=== PATIENT | female | born 1990 | race Caucasian/White ===

== ENCOUNTER 2017-05-01 19:26 | Emergency (ER) | payer OTHER ==
[2017-05-01] MEDS ORDERED: ONDANSETRON 4 MG/2 ML VIAL IVP STA (20:49)
[2017-05-01] MEDS ORDERED: SODIUM CHLORIDE 0.9% 1,000 ML IV STA (20:49)
[2017-05-01 21:40] LABS: Basophils % (A) 0 %; Eosinophils # (A) 0.1 k/uL (0-0.7); Eosinophils % (A) 1 %; HCT 42.7 % (34.0-46.0); HGB 14.2 gm/dL (11.4-16.0); Lymphocytes # (A) 1.2 k/uL (1.0-4.8); Lymphocytes % (A) 12 %; MCH 28.1 pg (25.0-35.0); MCHC 33.2 g/dL (31.0-37.0); MCV 84.6 fL (80.0-100.0); Mean Platelet Volume 7.9; Monocytes # (A) 0.5 k/uL (0-1.0); Monocytes % (A) 5 %; Neutrophils # (A) 8.5 k/uL (1.3-7.7); Neutrophils % (A) 82 %; Platelet Count 228 k/uL (150-450); RBC 5.05 m/uL (3.80-5.40); RDW 12.9 % (11.5-15.5); WBC 10.4 k/uL (3.8-10.6)
[2017-05-01] MEDS ORDERED: KETOROLAC 30 MG/ML 1 ML VIAL IVP STA (21:44)
[2017-05-01] MEDS ORDERED: MORPHINE SULFATE 4 MG/ML SYRINGE IVP ONE (21:44)
--- NOTE | 2017-05-01 21:45 | ED ---
Nausea/Vomiting/Diarrhea HPI - General Chief complaint: Nausea/Vomiting/Diarrhea Stated complaint: Vomiting Time Seen by Provider: 05/01/17 20:34 Source: patient, RN notes reviewed, old records reviewed Mode of arrival: ambulatory Limitations: no limitations - History of Present Illness Initial comments: Patient presents emergency Department chief complaint of chest pain for the past 3 hours. She's also been having multiple some episodes of vomiting and mucousy diarrhea for the past day.patient poor she feels very dizzy and dehydrated. Patient states that she has not been able to tolerate any fluids today. No history of sick contacts that she is aware of. She denies any specific abdominal pain. She does complain of some acid reflux type pain. - Related Data Home Medications Medication Instructions Recorded Confirmed HYDROcodone/APAP 10-325MG [[place] 1 tab PO TID PRN 05/01/17 05/01/17 10-325] Previous Rx's Medication Instructions Recorded Diphenox-Atrop 2.5-0.025 mg 1 tab PO QID PRN #15 tablet 05/01/17 [Lomotil] Metoclopramide [Reglan] 5 mg PO ACHS #20 tab 05/01/17 Allergies Allergy/AdvReac Type Severity Reaction Status Date / Time amoxicillin [Amoxicillin] Allergy Rash/Hives Verified 05/01/17 20:40 Review of Systems ROS Statement: Those systems with pertinent positive or pertinent negative responses have been documented in the HPI. ROS Other: All systems not noted in ROS Statement are negative. Past Medical History Past Medical History: Asthma History of Any Multi-Drug Resistant Organisms: None Reported Additional Past Surgical History / Comment(s): emerg D&C with last preg 1 month PP, rt groin Past Anesthesia/Blood Transfusion Reactions: No Reported Reaction Past Psychological History: Anxiety Smoking Status: Current every day smoker Past Alcohol Use History: None Reported Past Drug Use History: Marijuana General Exam - General Exam Comments Initial Comments: 19-year-old female. No acute distress. She has. Mildly anxious. Limitations: no limitations General appearance: alert, in no apparent distress Head exam: Present: atraumatic, normocephalic, normal inspection Eye exam: Present: normal appearance, PERRL, EOMI. Absent: scleral icterus, conjunctival injection, periorbital swelling ENT exam: Present: normal exam, mucous membranes moist Neck exam: Present: normal inspection. Absent: tenderness, meningismus, lymphadenopathy Respiratory exam: Present: normal lung sounds bilaterally. Absent: respiratory distress, wheezes, rales, rhonchi, stridor Cardiovascular Exam: Present: regular rate, normal rhythm, normal heart sounds. Absent: systolic murmur, diastolic murmur, rubs, gallop, clicks GI/Abdominal exam: Present: soft, normal bowel sounds. Absent: distended, tenderness, guarding, rebound, rigid Extremities exam: Present: normal inspection, full ROM, normal capillary refill. Absent: tenderness, pedal edema, joint swelling, calf tenderness Back exam: Present: normal inspection Course Vital Signs 05/01/17 05/02/17 20:27 00:01 Temperature 97.3 F L 97.8 F Pulse Rate 92 78 Respiratory 24 14 Rate Blood Pressure 111/64 121/58 O2 Sat by Pulse 97 95 Oximetry - Reevaluation(s) Reevaluation #1: 05/01/17 23:09 is dilated resting comfortably in bed. Medical Decision Making - Medical Decision Making patient is a 19-year-old female with 1 day of vomiting and diarrhea. Patient also complains a few hours of chest pain prior to arrival. EKG that she has some changes however they're on remarkable compared to EKG performed 10 years ago. The EKG appears exactly the same. Troponins negative. White blood cell count was normal. Chemistry panels are within normal limits. Urinalysis shows dehydration with positive ketones. Patient will be discharged with nausea medicine and diarrheal medicine. Discussed appropriate follow-up with primary care provider. All questions were answered and return parameters were discussed. She does feel much better at this time after IV fluids. - Lab Data Result diagrams: 05/01/17 21:18 05/01/17 21:18 Lab Results 05/01/17 05/01/17 05/01/17 Range/Units 21:18 21:18 21:18 WBC 10.4 (3.8-10.6) k/uL RBC 5.05 (3.80-5.40) m/uL Hgb 14.2 (11.4-16.0) gm/dL Hct 42.7 (34.0-46.0) % MCV 84.6 (80.0-100.0) fL MCH 28.1 (25.0-35.0) pg MCHC 33.2 (31.0-37.0) g/dL RDW 12.9 (11.5-15.5) % Plt Count 228 (150-450) k/uL Neutrophils % 82 % Lymphocytes % 12 % Monocytes % 5 % Eosinophils % 1 % Basophils % 0 % Neutrophils # 8.5 H (1.3-7.7) k/uL Lymphocytes # 1.2 (1.0-4.8) k/uL Monocytes # 0.5 (0-1.0) k/uL Eosinophils # 0.1 (0-0.7) k/uL Basophils # 0.0 (0-0.2) k/uL Sodium 138 (137-145) mmol/L Potassium 3.5 (3.5-5.1) mmol/L Chloride 101 (98-107) mmol/L Carbon Dioxide 19 L (22-30) mmol/L Anion Gap 18 mmol/L BUN 13 (7-17) mg/dL Creatinine 0.60 (0.52-1.04) mg/dL Est GFR (CKD-EPI)AfAm >90 (>60 ml/min/1.73 sqM) Est GFR (CKD-EPI)NonAf >90 (>60 ml/min/1.73 sqM) Glucose 97 (74-99) mg/dL Plasma Lactic Acid Paulino 0.9 (0.7-2.0) mmol/L Calcium 9.9 (8.4-10.2) mg/dL Total Bilirubin 1.0 (0.2-1.3) mg/dL AST 19 (14-36) U/L ALT 27 (9-52) U/L Alkaline Phosphatase 67 (38-126) U/L Troponin I (0.000-0.034) ng/mL Total Protein 7.2 (6.3-8.2) g/dL Albumin 4.4 (3.5-5.0) g/dL Amylase 33 (30-110) U/L Lipase 16 L (23-300) U/L Urine Color Urine Appearance (Clear) Urine pH (5.0-8.0) Ur Specific [place] (1.001-1.035) Urine Protein (Negative) Urine Glucose (UA) (Negative) Urine Ketones (Negative) Urine Blood (Negative) Urine Nitrite (Negative) Urine Bilirubin (Negative) Urine Urobilinogen (<2.0) mg/dL Ur Leukocyte Esterase (Negative) Urine RBC (0-5) /hpf Urine WBC (0-5) /hpf Ur Squamous Epith Cells (0-4) /hpf Urine Bacteria (None) /hpf Urine Mucus (None) /hpf 05/01/17 05/01/17 Range/Units 21:18 21:50 WBC (3.8-10.6) k/uL RBC (3.80-5.40) m/uL Hgb (11.4-16.0) gm/dL Hct (34.0-46.0) % MCV (80.0-100.0) fL MCH (25.0-35.0) pg MCHC (31.0-37.0) g/dL RDW (11.5-15.5) % Plt Count (150-450) k/uL Neutrophils % % Lymphocytes % % Monocytes % % Eosinophils % % Basophils % % Neutrophils # (1.3-7.7) k/uL Lymphocytes # (1.0-4.8) k/uL Monocytes # (0-1.0) k/uL Eosinophils # (0-0.7) k/uL Basophils # (0-0.2) k/uL Sodium (137-145) mmol/L Potassium (3.5-5.1) mmol/L Chloride (98-107) mmol/L Carbon Dioxide (22-30) mmol/L Anion Gap mmol/L BUN (7-17) mg/dL Creatinine (0.52-1.04) mg/dL Est GFR (CKD-EPI)AfAm (>60 ml/min/1.73 sqM) Est GFR (CKD-EPI)NonAf (>60 ml/min/1.73 sqM) Glucose (74-99) mg/dL Plasma Lactic Acid Paulino (0.7-2.0) mmol/L Calcium (8.4-10.2) mg/dL Total Bilirubin (0.2-1.3) mg/dL AST (14-36) U/L ALT (9-52) U/L Alkaline Phosphatase (38-126) U/L Troponin I <0.012 (0.000-0.034) ng/mL Total Protein (6.3-8.2) g/dL Albumin (3.5-5.0) g/dL Amylase (30-110) U/L Lipase (23-300) U/L Urine Color Yellow Urine Appearance Cloudy H (Clear) Urine pH 6.0 (5.0-8.0) Ur Specific [place] 1.030 (1.001-1.035) Urine Protein 1+ H (Negative) Urine Glucose (UA) Negative (Negative) Urine Ketones 4+ H (Negative) Urine Blood Negative (Negative) Urine Nitrite Negative (Negative) Urine Bilirubin 1+ H (Negative) Urine Urobilinogen 2.0 (<2.0) mg/dL Ur Leukocyte Esterase Negative (Negative) Urine RBC 4 (0-5) /hpf Urine WBC 1 (0-5) /hpf Ur Squamous Epith Cells 10 H (0-4) /hpf Urine Bacteria Rare H (None) /hpf Urine Mucus Many H (None) /hpf 05/01/17 22:37 EKG shows sinus rhythm with marked sinus arrhythmia. T wave abnormality. Considering anterior ischemia. The jugular rate of 63 bpm. NV interval 150 ms. QRS ration 82 ms. QT QTc is 410/419 ms. - Radiology Data Radiology results: report reviewed KUB shows normal bowel gas pattern. Chest x-ray was reviewed and negative for any acute process. Disposition Clinical Impression: Nausea & vomiting, Diarrhea Disposition: HOME SELF-CARE Condition: Good Instructions: Acute Nausea and Vomiting (ED) Additional Instructions: Patient advised follow-up with primary care provider. Return to the emergency department if any alarming signs or symptoms occur. Take the medications as prescribed. Prescriptions: Diphenox-Atrop 2.5-0.025 mg [Lomotil] 1 tab PO QID PRN #15 tablet PRN Reason: Diarrhea Metoclopramide [Reglan] 5 mg PO ACHS #20 tab Referrals: Amira Carroll MD [Primary Care Provider] - 1-2 days Time of Disposition: 23:13
--- NOTE | 2017-05-01 21:48 | XR ---
EXAMINATION: XR chest 2V DATE AND TIME: 05/01/2017 9:34 PM ORDERING PROVIDER: Morenita Price CLINICAL INDICATION: pain TECHNIQUE: PA and lateral COMPARISON: 12/15/2010 DESCRIPTION: The lungs are clear. The pleural spaces are negative. The cardiac silhouette is not enlarged. The mediastinal and pleural silhouettes are unremarkable. The skeletal structures are intact without focal findings. The soft tissues are unremarkable. IMPRESSION: NO ACUTE PROCESS.
--- NOTE | 2017-05-01 21:53 | XR ---
EXAMINATION TYPE: XR KUB - 2V DATE OF EXAM: 05/01/2017 COMPARISON: NONE HISTORY: Nausea and vomiting with pain TECHNIQUE: 2 upright views FINDINGS: Bowel gas pattern is normal. No pneumatosis. No pneumoperitoneum. The skeletal structures a nd soft tissues are unremarkable. The visualized lung bases and pleural spaces and cardiac silhouette are unremarkable. IMPRESSION: Negative examination.
[2017-05-01 21:54] LABS: ALT 27 U/L (9-52); AST 19 U/L (14-36); Albumin 4.4 g/dL (3.5-5.0); Alkaline Phosphatase 67 U/L (38-126); Amylase 33 U/L (30-110); Anion Gap 18 mmol/L; Blood Urea Nitrogen 13 mg/dL (7-17); Calcium 9.9 mg/dL (8.4-10.2); Carbon Dioxide 19 mmol/L (22-30); Chloride 101 mmol/L (98-107); Glucose 97 mg/dL (74-99); Lipase 16 U/L (23-300); Potassium 3.5 mmol/L (3.5-5.1); Sodium 138 mmol/L (137-145); Total Protein 7.2 g/dL (6.3-8.2)
[2017-05-01] MEDS ORDERED: MORPHINE SULFATE/PF 10MG/10ML VL ONE (22:00)
[2017-05-01] MEDS ORDERED: diphenhydrAMINE 50 MG/ML 1 ML VIAL IVP STA (22:02)
[2017-05-01] MEDS ORDERED: METOCLOPRAMIDE 5 MG/ML 2 ML VIAL IVP STA (22:02)
[2017-05-01 22:14] LABS: Appearance,Urine Cloudy (Clear); Bacteria,Urine Rare /hpf; Bilirubin,Urine 1+ (Negative); Blood,Urine Negative (Negative); Color,Urine Yellow; Glucose,Urine (UA) Negative (Negative); Ketones,Urine 4+ (Negative); Leukocyte Esterase,Urine Negative (Negative); Mucus,Urine Many /hpf; Nitrite,Urine Negative (Negative); Protein,Urine 1+ (Negative); RBC,Urine 4 /hpf (0-5); Squamous Epithelial Cell,Urine 10 /hpf (0-4); WBC,Urine 1 /hpf (0-5)
[2017-05-01] MEDS ORDERED: PANTOPRAZOLE 40 MG/10 ML VIAL IVP STA (22:42)
[2017-05-01] MEDS ORDERED: ONDANSETRON 4 MG ODT STARTER PACK 2 TAB BTL PO STA (23:14)
[2017-05-01] MEDS ORDERED: DIPHENOX-ATROP STARTER PACK 8 TAB BTL PO STA (23:14)
[2017-05-02 00:02] VITALS: BP 121/58; PULSE 78; RESP 14; TEMP 97.8
== END 2017-05-02 00:10 | disposition home or self-care (01) ==
LOC: EC 19:26
DX: E86.0 Dehydration (principal); R11.2 Nausea with vomiting, unspecified; R19.7 Diarrhea, unspecified; R42 Dizziness and giddiness; R07.9 Chest pain, unspecified; Z88.0 Allergy status to penicillin; F17.200 Nicotine dependence, unspecified, uncomplicated; Z53.8 Procedure and treatment not carried out for other reasons
CPT/HCPCS: 99284 ×2; 96374 ×2; 96375 ×4; 96361; 36415; 93005; 80053; 82150; 83605; 83690; 84484; 85025; 81001; 87040; 71046; 74018; J1200; J2765; J2405; S0119; C9113; J2270

== ENCOUNTER 2018-04-10 09:59 | Emergency (ER) | payer OTHER ==
[2018-04-10 10:04] VITALS: RESP 18
[2018-04-10] MEDS ORDERED: LORazepam 1 MG TAB PO STA (10:34)
[2018-04-10] MEDS ORDERED: ONDANSETRON 4 MG ODT STARTER PACK 2 TAB BTL PO STA (10:34)
[2018-04-10] MEDS ORDERED: ACETAMINOPHEN TAB 500 MG TAB PO STA (10:34)
[2018-04-10] MEDS ORDERED: ALBUTEROL NEBULIZED 2.5 MG/3 ML INHALATION STA (10:34)
--- NOTE | 2018-04-10 10:37 | ED ---
URI HPI - General Chief Complaint: Upper Respiratory Infection Stated Complaint: POSS FLU Time Seen by Provider: 04/10/18 10:24 Source: patient, RN notes reviewed, old records reviewed Mode of arrival: ambulatory Limitations: no limitations - History of Present Illness Initial Comments: Patient is a 28-year-old female who presents the emergency department today with little to no complaints. Patient states that her children were diagnosed with flu earlier in the week. She complains of fevers chills body aches cough. She states it is hard for take a deep breath. Patient reports that she also had some constipation. She did have a bowel movement today. Denies any abdominal pain. She denies any recent vomiting. - Related Data Home Medications Medication Instructions Recorded Confirmed HYDROcodone/APAP 10-325MG [[place] 1 tab PO TID PRN 05/01/17 05/01/17 10-325] Previous Rx's Medication Instructions Recorded Diphenox-Atrop 2.5-0.025 mg 1 tab PO QID PRN #15 tablet 05/01/17 [Lomotil] Metoclopramide [Reglan] 5 mg PO ACHS #20 tab 05/01/17 Albuterol Inhaler [Ventolin Hfa 1 - 2 puff INHALATION RT-Q6H PRN 04/10/18 Inhaler] #1 inhaler Ondansetron [Zofran] 4 mg PO Q8HR PRN #12 tab 04/10/18 Promethazine/Dextromethorphan 5 ml PO TID #120 ml 04/10/18 [Phenergan DM Syrup] predniSONE 20 mg PO BID #10 tab 04/10/18 Allergies Allergy/AdvReac Type Severity Reaction Status Date / Time amoxicillin [Amoxicillin] Allergy Rash/Hives Verified 04/10/18 10:00 Review of Systems ROS Statement: Those systems with pertinent positive or pertinent negative responses have been documented in the HPI. ROS Other: All systems not noted in ROS Statement are negative. Past Medical History Past Medical History: Asthma History of Any Multi-Drug Resistant Organisms: None Reported Additional Past Surgical History / Comment(s): emerg D&C with last preg 1 month PP, rt groin Past Anesthesia/Blood Transfusion Reactions: No Reported Reaction Past Psychological History: Anxiety Smoking Status: Current every day smoker Past Alcohol Use History: None Reported Past Drug Use History: Marijuana General Exam - General Exam Comments Initial Comments: 28-year-old female. Alert and oriented 3. Patient appears anxious. Crying. Limitations: no limitations General appearance: alert, in no apparent distress Head exam: Present: atraumatic, normocephalic, normal inspection Eye exam: Present: normal appearance, PERRL, EOMI. Absent: scleral icterus, conjunctival injection, periorbital swelling ENT exam: Present: normal exam, mucous membranes moist Neck exam: Present: normal inspection. Absent: tenderness, meningismus, lymphadenopathy Respiratory exam: Present: normal lung sounds bilaterally, wheezes. Absent: respiratory distress, rales, rhonchi, stridor Cardiovascular Exam: Present: regular rate, normal rhythm, normal heart sounds. Absent: systolic murmur, diastolic murmur, rubs, gallop, clicks GI/Abdominal exam: Present: soft, normal bowel sounds. Absent: distended, tenderness, guarding, rebound, rigid Extremities exam: Present: normal inspection, full ROM, normal capillary refill. Absent: tenderness, pedal edema, joint swelling, calf tenderness Back exam: Present: normal inspection Neurological exam: Present: alert Psychiatric exam: Present: normal affect, normal mood Skin exam: Present: warm, dry, intact, normal color. Absent: rash Course Vital Signs 04/10/18 04/10/18 04/10/18 10:00 10:49 10:58 Temperature 98.2 F Pulse Rate 75 78 84 Respiratory 18 Rate Blood Pressure 96/54 O2 Sat by Pulse 99 Oximetry Medical Decision Making - Medical Decision Making 28-year-old female presents for shortness today with chief complaint of chest cough congestion fevers. She reports her children were diagnosed with flu earlier this week. Patient clinically has the flu. Patient's chest x-ray was reviewed and negative. She appeared very anxious and having trouble breathing when she arrived. She was given 1 mg of Ativan by mouth. And a breathing treatment. Patient's feeling much better after receiving these medications. Discussed the Patient likely has a flu but has had symptoms for the past 4 days. Her symptoms started on . I discussed that Patient be treated symptomatically Motrin Tylenol medication for nausea and vomiting. I discussed strict return parameters and close follow-up with PCP. - Radiology Data Radiology results: report reviewed Normal chest x-ray. Disposition Clinical Impression: Influenza, Bronchitis Disposition: HOME SELF-CARE Condition: Good Instructions (If sedation given, give patient instructions): Upper Respiratory Infection (ED), Influenza (ED) Additional Instructions: Patient advised that close follow-up with primary care physician. Patient should return to the emergency department if any alarming signs or symptoms occur. Use the inhaler and the steroids as prescribed. Recommend using the nausea medicine as well. Clear liquids and bland diet for the next 24-48 hours. Prescriptions: Albuterol Inhaler [Ventolin Hfa Inhaler] 1 - 2 puff INHALATION RT-Q6H PRN #1 inhaler PRN Reason: Shortness Of Breath Ondansetron [Zofran] 4 mg PO Q8HR PRN #12 tab PRN Reason: Nausea predniSONE 20 mg PO BID #10 tab Promethazine/Dextromethorphan [Phenergan DM Syrup] 5 ml PO TID #120 ml Is patient prescribed a controlled substance at d/c from ED?: No Referrals: Amira Carroll MD [Primary Care Provider] - 1-2 days Time of Disposition: 11:45
--- NOTE | 2018-04-10 11:17 | XR ---
EXAMINATION TYPE: XR chest 2V DATE OF EXAM: 04/10/2018 COMPARISON: Chest x-ray May 01, 2017 HISTORY: Chest pain. Cold-like symptoms. TECHNIQUE: Frontal and lateral views of the chest are obtained. FINDINGS: There is no focal air space opacity, pleural effusion, or pneumothorax seen. The cardiac silhouette size is within normal limits. The osseous structures are intact. IMPRESSION: No acute cardiopulmonary process. No significant change from prior.
[2018-04-10 12:03] VITALS: BP 112/69; PULSE 90; TEMP 97.7
== END 2018-04-10 12:00 | disposition home or self-care (01) ==
LOC: EC 09:59
DX: J11.1 Influenza due to unidentified influenza virus with other respiratory manifestations (principal); R45.83 Excessive crying of child, adolescent or adult; J45.909 Unspecified asthma, uncomplicated; F17.200 Nicotine dependence, unspecified, uncomplicated; Z88.0 Allergy status to penicillin
CPT/HCPCS: 94640; 71046; 99284; S0119

== ENCOUNTER 2020-03-26 08:52 | Emergency (ER) | payer OTHER ==
--- NOTE | 2020-03-26 09:19 | ED ---
General Adult HPI - General Chief complaint: Abdominal Pain Stated complaint: Abd Pain Time Seen by Provider: 03/26/20 09:08 Source: patient Mode of arrival: ambulatory Limitations: no limitations - History of Present Illness Initial comments: Dictation was produced using [employer] dictation software. please excuse any grammatical, word or spelling errors. This patient was cared for during a federal and state declared state of emergency secondary to Covid 19 Chief Complaint: 30-year-old female past medical history of asthma chronic back pain presents today with abdominal pain, rhinorrhea, cough History of Present Illness: Is a 30-year-old female she has no significant comorbidities. Patient states for the last 8 days she's been having cough, runny nose, fever, diarrhea, suprapubic abdominal pain and chest pain. Patient states symptoms have been ongoing for the last 8 days. She did seek medical attention at the urgent care. She was given prescription for Ten Sleep was however feels like her symptoms have not been improving. She does experience adequate pain relief with the analgesia. She states she was off work for the last 7-8 days. Denies any vaginal discharge. She is sexually active with one partner. No suspicion of sexual transmitted disease. She recently had her menstrual cycle. States that she has been having some bilious emesis that taste better. Diarrhea is nonbilious not bloody. No recent travel. The ROS documented in this emergency department record has been reviewed and confirmed by me. Those systems with pertinent positive or negative responses have been documented in the HPI. All other systems are other negative and/or noncontributory. PHYSICAL EXAM: General Impression: Alert and oriented x3, not in acute distress HEENT: Normocephalic atraumatic, extra-ocular movements intact, pupils equal and reactive to light bilaterally, mucous membranes moist. Cardiovascular: Heart regular rate and rhythm Chest: Able to complete full sentences, no retractions, no tachypnea Abdomen: abdomen soft, mild tenderness to the suprapubic area, left lower quadrant tenderness, no McBurney's point tenderness, negative Szymanski's sign, no left upper quadrant tenderness to palpation, non-distended, no organomegaly Musculoskeletal: Pulses present and equal in all extremities, no peripheral edema Motor: no focal deficits noted Neurological: CN II-XII grossly intact, no focal motor or sensory deficits noted Skin: Intact with no visualized rashes Psych: Normal affect and mood ED course: 30-year-old female presents to the emergency department for multiple complaints. She does have some features of viral illness. She states that she was tested for elevated at the urgent care recently. She had a PCR test and was found to be negative. Vital signs upon arrival are within acceptable limits.Limited evaluation obtained. CBC unremarkable. Metabolic panel is negative. HCG Quant is 170,000, urinalysis is unremarkable. ultrasound shows single live intrauterine with estimated gestational age of 4 weeks and 3 days. Ultrasound by him and treat his larger frankly discordant at 8 weeks 0 days by crown rump length. Pelvic exam was performed with close cervical os. There is maybe some minimal tenderness with adnexal palpation. No cervical motion tenderness, no discharge. EKG interpretation: Ventricular rate 81, normal sinus rhythm, CA interval 156, QRS 82, QTc 446. No CA prolongation, no QTC prolongation, no ST or T-wave changes noted. EKG compared to 05/01/2017 showing no changes. Overall, this EKG is unremarkable 12:55 PM: Case is discussed in detail with Dr. Olvera. Dr. Olvera requests that patient be held in the emergency department so she can be evaluated before any disposition plans are made. Patient was evaluated at bedside by Dr. Olvera at approximately 1:20 PM. Patient appears to be much more improved after administration of morphine and Tylenol. After observation in the emergency department for approximately 5 hours her pain is much more controlled. She stable-appearing she has normal labs and laboratory evaluation: Signs with ultrasound findings. She reports she does have some mild pain however it's much more tolerable. She is advised to take Tylenol and started on vitamins with folic acid. She has outpatient follow-up with obstetrics. Return parameters discussed. Patient be discharged. - Related Data Home Medications Medication Instructions Recorded Confirmed HYDROcodone/APAP 10-325MG [Ten Sleep 1 tab PO QID 05/01/17 03/26/20 10-325] Acetaminophen [Tylenol] 325 - 650 mg PO Q4H PRN 03/26/20 03/26/20 Ibuprofen [Motrin Ib] 200 - 400 mg PO Q4H PRN 03/26/20 03/26/20 Allergies Allergy/AdvReac Type Severity Reaction Status Date / Time amoxicillin [Amoxicillin] Allergy Rash/Hives Verified 03/26/20 10:57 Penicillins Allergy Rash/Hives Verified 03/26/20 10:57 Review of Systems ROS Statement: Those systems with pertinent positive or pertinent negative responses have been documented in the HPI. ROS Other: All systems not noted in ROS Statement are negative. Past Medical History Past Medical History: Asthma Additional Past Medical History / Comment(s): chr. back pain History of Any Multi-Drug Resistant Organisms: None Reported Additional Past Surgical History / Comment(s): d&c, rt groin Past Anesthesia/Blood Transfusion Reactions: No Reported Reaction Past Psychological History: Anxiety Smoking Status: Current every day smoker Past Alcohol Use History: None Reported Past Drug Use History: Marijuana General Exam Limitations: no limitations Course Vital Signs 03/26/20 03/26/20 08:56 12:36 Temperature 98.4 F 97.8 F Pulse Rate 95 76 Respiratory 18 20 Rate Blood Pressure 127/74 115/70 O2 Sat by Pulse 98 99 Oximetry Medical Decision Making - Lab Data Result diagrams: 03/26/20 09:23 03/26/20 09:23 Lab Results 03/26/20 03/26/20 03/26/20 Range/Units 09:23 09:23 09:23 WBC 9.0 (3.8-10.6) k/uL RBC 4.51 (3.80-5.40) m/uL Hgb 13.2 (11.4-16.0) gm/dL Hct 39.6 (34.0-46.0) % MCV 87.8 (80.0-100.0) fL MCH 29.3 (25.0-35.0) pg MCHC 33.4 (31.0-37.0) g/dL RDW 12.1 (11.5-15.5) % Plt Count 190 (150-450) k/uL MPV 8.1 Neutrophils % 73 % Lymphocytes % 20 % Monocytes % 5 % Eosinophils % 1 % Basophils % 0 % Neutrophils # 6.6 (1.3-7.7) k/uL Lymphocytes # 1.8 (1.0-4.8) k/uL Monocytes # 0.4 (0-1.0) k/uL Eosinophils # 0.1 (0-0.7) k/uL Basophils # 0.0 (0-0.2) k/uL Sodium 135 L (137-145) mmol/L Potassium 3.9 (3.5-5.1) mmol/L Chloride 102 (98-107) mmol/L Carbon Dioxide 24 (22-30) mmol/L Anion Gap 9 mmol/L BUN 8 (7-17) mg/dL Creatinine 0.54 (0.52-1.04) mg/dL Est GFR (CKD-EPI)AfAm >90 (>60 ml/min/1.73 sqM) Est GFR (CKD-EPI)NonAf >90 (>60 ml/min/1.73 sqM) Glucose 112 H (74-99) mg/dL Calcium 9.3 (8.4-10.2) mg/dL Total Bilirubin 0.4 (0.2-1.3) mg/dL AST 20 (14-36) U/L ALT 25 (4-34) U/L Alkaline Phosphatase 50 (38-126) U/L Total Protein 6.8 (6.3-8.2) g/dL Albumin 4.1 (3.5-5.0) g/dL Lipase 23 (23-300) U/L HCG, Quant mIU/mL Urine Color Yellow Urine Appearance Cloudy H (Clear) Urine pH 6.0 (5.0-8.0) Ur Specific [place] 1.025 (1.001-1.035) Urine Protein Trace H (Negative) Urine Glucose (UA) Negative (Negative) Urine Ketones Negative (Negative) Urine Blood Negative (Negative) Urine Nitrite Negative (Negative) Urine Bilirubin Negative (Negative) Urine Urobilinogen <2.0 (<2.0) mg/dL Ur Leukocyte Esterase Negative (Negative) Urine RBC 1 (0-5) /hpf Urine WBC 1 (0-5) /hpf Ur Squamous Epith Cells 5 H (0-4) /hpf Urine Bacteria Rare H (None) /hpf Urine Mucus Many H (None) /hpf Urine HCG, Qual (Not Detectd) 03/26/20 03/26/20 Range/Units 09:23 09:23 WBC (3.8-10.6) k/uL RBC (3.80-5.40) m/uL Hgb (11.4-16.0) gm/dL Hct (34.0-46.0) % MCV (80.0-100.0) fL MCH (25.0-35.0) pg MCHC (31.0-37.0) g/dL RDW (11.5-15.5) % Plt Count (150-450) k/uL MPV Neutrophils % % Lymphocytes % % Monocytes % % Eosinophils % % Basophils % % Neutrophils # (1.3-7.7) k/uL Lymphocytes # (1.0-4.8) k/uL Monocytes # (0-1.0) k/uL Eosinophils # (0-0.7) k/uL Basophils # (0-0.2) k/uL Sodium (137-145) mmol/L Potassium (3.5-5.1) mmol/L Chloride (98-107) mmol/L Carbon Dioxide (22-30) mmol/L Anion Gap mmol/L BUN (7-17) mg/dL Creatinine (0.52-1.04) mg/dL Est GFR (CKD-EPI)AfAm (>60 ml/min/1.73 sqM) Est GFR (CKD-EPI)NonAf (>60 ml/min/1.73 sqM) Glucose (74-99) mg/dL Calcium (8.4-10.2) mg/dL Total Bilirubin (0.2-1.3) mg/dL AST (14-36) U/L ALT (4-34) U/L Alkaline Phosphatase (38-126) U/L Total Protein (6.3-8.2) g/dL Albumin (3.5-5.0) g/dL Lipase (23-300) U/L HCG, Quant 251786.0 mIU/mL Urine Color Urine Appearance (Clear) Urine pH (5.0-8.0) Ur Specific [place] (1.001-1.035) Urine Protein (Negative) Urine Glucose (UA) (Negative) Urine Ketones (Negative) Urine Blood (Negative) Urine Nitrite (Negative) Urine Bilirubin (Negative) Urine Urobilinogen (<2.0) mg/dL Ur Leukocyte Esterase (Negative) Urine RBC (0-5) /hpf Urine WBC (0-5) /hpf Ur Squamous Epith Cells (0-4) /hpf Urine Bacteria (None) /hpf Urine Mucus (None) /hpf Urine HCG, Qual Detected (Not Detectd) Disposition Clinical Impression: Pelvic pain Disposition: HOME SELF-CARE Condition: Good Instructions (If sedation given, give patient instructions): Pelvic Pain in Women (ED), (ED) Additional Instructions: [id number] Tylenol for pain. Follow-up with Dr. Olvera as instructed. Please seek medical attention with any worsening symptoms.Begin taking vitamins with folic acid. Is patient prescribed a controlled substance at d/c from ED?: No Referrals: Sariah Olvera MD [STAFF PHYSICIAN] - 1-2 days Time of Disposition: 13:37
[2020-03-26] MEDS ORDERED: ONDANSETRON 4 MG/2 ML VIAL IVP STA (09:24)
[2020-03-26] MEDS ORDERED: SODIUM CHLORIDE 0.9% 1,000 ML IV STA ×2 (09:24→12:27)
[2020-03-26 09:32] LABS: Basophils % (A) 0 %; Eosinophils # (A) 0.1 k/uL (0-0.7); Eosinophils % (A) 1 %; HCT 39.6 % (34.0-46.0); HGB 13.2 gm/dL (11.4-16.0); Lymphocytes # (A) 1.8 k/uL (1.0-4.8); Lymphocytes % (A) 20 %; MCH 29.3 pg (25.0-35.0); MCHC 33.4 g/dL (31.0-37.0); MCV 87.8 fL (80.0-100.0); Mean Platelet Volume 8.1; Monocytes # (A) 0.4 k/uL (0-1.0); Monocytes % (A) 5 %; Neutrophils # (A) 6.6 k/uL (1.3-7.7); Neutrophils % (A) 73 %; Platelet Count 190 k/uL (150-450); RBC 4.51 m/uL (3.80-5.40); RDW 12.1 % (11.5-15.5)
[2020-03-26 09:38] LABS: Appearance,Urine Cloudy (Clear); Bacteria,Urine Rare /hpf; Bilirubin,Urine Negative (Negative); Blood,Urine Negative (Negative); Color,Urine Yellow; Glucose,Urine (UA) Negative (Negative); Ketones,Urine Negative (Negative); Leukocyte Esterase,Urine Negative (Negative); Mucus,Urine Many /hpf; Nitrite,Urine Negative (Negative); Protein,Urine Trace (Negative); RBC,Urine 1 /hpf (0-5); Specific Gravity,Urine 1.025 (1.001-1.035); Squamous Epithelial Cell,Urine 5 /hpf (0-4); Urobilinogen,Urine <2.0 mg/dL (<2.0); WBC,Urine 1 /hpf (0-5)
[2020-03-26 09:41] LABS: ALT 25 U/L (4-34); AST 20 U/L (14-36); African American GFR (CKD) >90 (>60 ml/min/1.73 sqM); Albumin 4.1 g/dL (3.5-5.0); Alkaline Phosphatase 50 U/L (38-126); Anion Gap 9 mmol/L; Blood Urea Nitrogen 8 mg/dL (7-17); Calcium 9.3 mg/dL (8.4-10.2); Carbon Dioxide 24 mmol/L (22-30); Chloride 102 mmol/L (98-107); Glucose 112 mg/dL (74-99); Lipase 23 U/L (23-300); Non-African American GFR(CKD) >90 (>60 ml/min/1.73 sqM); Potassium 3.9 mmol/L (3.5-5.1); Sodium 135 mmol/L (137-145); Total Bilirubin 0.4 mg/dL (0.2-1.3); Total Protein 6.8 g/dL (6.3-8.2)
[2020-03-26] MEDS ORDERED: ACETAMINOPHEN TAB 500 MG TAB PO STA (10:26)
--- NOTE | 2020-03-26 12:16 | US ---
EXAMINATION TYPE: Ultrasound OB <= 14 week fetus DATE OF EXAM: 03/26/2020 11:48 AM COMPARISON: NONE CLINICAL HISTORY: 30-year-old female with abdominal and pelvic pain and N/V x 1 week EXAM PERFORMED: Transabdominal (TA) FINDINGS: EXAM MEASUREMENTS: GESTATIONAL AGE / DATING Physician Established: Not established yet Dates by LMP: (4 weeks/3 days) EDC: 11/30/2020 Dates by First Scan: This is 1st scan Dates by Current Scan for: ( 8 weeks/0 days) EDC: 11/05/2020 MATERNAL ANATOMY Uterus: 10.5 x 7.5 x 8.8cm, anteverted Right Ovary: 2.8 x 1.8 x 1.4cm Left Ovary: 3.3 x 1.9 x 2.6cm Post CDS / Adnexa: wnl Presence of free fluid: no Presence of corpus luteal cyst: left ovary: 2.0 x 1.4 x 1.6cm Presence of subchorionic bleed: no GESTATION / SURVEY CRL: 1.5cm (8 weeks/0 days) Yolk Sac (normal less than 6mm): 4.3mm Heart Rate: 154 bpm Rhythm: Normal IUP: Viable IUP Date of LMP: 02/24/2020 Beta HcG (if available): Not available at time of exam Scissors Sharpener notes: Viable single IUP measuring 8 weeks 0 days with a heart rate of 154bpm and an christiana mated delivery date of 11/05/2020. IMPRESSION: 1. Single live intrauterine with estimated gestational age of 4 weeks 3 days by LMP. Curren t ultrasound biometry is larger and frankly discordant at 8 weeks 0 days by CRL. Correlate as to accu racy of recall of LMP. Short interval follow-up to assess growth if clinically indicated. 2. Otherwise, complete survey recommended at 18-20 weeks.
[2020-03-26] MEDS ORDERED: MORPHINE SULFATE 4 MG/ML SYRINGE IVP STA (12:26)
[2020-03-26 14:23] VITALS: BP 114/84; PULSE 74; RESP 18; TEMP 97.6
--- NOTE | 2020-03-26 17:31 | CONS ---
CONSULTATION DATE OF CONSULTATION: 03/26/2020 This is a 30-year-old, 5, para 4-0-0-4, LMP she states 02/24/2020, who presented to the emergency room with nonspecific complaints of fatigue, sweats, nausea, no emesis, nonspecific lower abdominal pain. She states she had COVID testing recently performed which was negative. She was unaware that she was . She denies urinary symptomatology. Bowel movements have been regular, intermittently experiencing diarrhea; no constipation. Review of systems is otherwise negative. PAST MEDICAL HISTORY: Past medical history is significant for asthma. She had one seizure 6 years ago. PAST SURGICAL HISTORY: Left inguinal lymph node removal, tonsillectomy and adenoidectomy. CURRENT MEDICATIONS: [place] that she states she uses every day for back pain and degenerative disc disease in L4 and L5. She also states that she has been told by Dr. Franco that she has fibromyalgia. ALLERGIES: ALLERGIES include AMOXICILLIN and PENICILLIN, to which reports an unknown reaction as a child. SOCIAL HISTORY: The patient is a tobacco smoker for 23 years, starting smoking at age 7. She also smokes marijuana and states last smoked one month ago. She is single. She denies other alcohol or drug use. PHYSICAL EXAMINATION: On examination, she is 5 feet 1 inch, 157 pounds. Vital signs are stable and she is afebrile. Chest is clear to auscultation in all [place] anteriorly and posteriorly. Cardiac exam reveals a regular rate and rhythm with no murmur, click or rub. Breasts are bilaterally sensitive; no obvious breast lesions or skin changes. HEENT exam reveals good dentition. No thyromegaly. Abdomen is softly distended, active bowel sounds, minimally tender to suprapubic palpation. Extremities reveal no edema, good peripheral pulses. On pelvic exam, cervix is long, thick and closed. No vaginal bleeding. Uterus is 8- to 10-week size, slightly tender to palpation, but freely mobile. Adnexa are negative bilaterally. There is no CVA tenderness. LABS: White count 9.0, hemoglobin 13.2. Urinalysis is negative. Ultrasound reveals an 8-week viable intrauterine , EDC 11/05/2020. There is a small 2.0 x 1.4 x 1.6 cm left adnexal cyst. No free fluid. In discussing the films with Dr. Madden, radiologist, the uterine fundus is not near the pubic symphysis. Total uterine dimension is 10.5 x 7.5 x 8.8 cm. IMPRESSION: Eight-week intrauterine . Otherwise nonspecific physical complaints. Laboratory assessment within normal limits. PLAN: I have reminded the patient that her sonographic due date is 11/05/2020. She will discontinue all [place] products and marijuana, and discontinue tobacco as well. vitamin with folic acid daily is recommended. The patient will follow up with me in the office in 7-10 days for assessment, labs, and other studies as indicated. I have reminded her to use Extra-Strength Tylenol 1000 mg every 4-6 hours as needed, to increase her oral fluid consumption, and no intercourse at this point until further evaluation in the office. MMODL / IJN: [id number] /
== END 2020-03-26 14:23 | disposition home or self-care (01) ==
LOC: EC 08:52
DX: O26.891 Other specified pregnancy related conditions, first trimester (principal); R10.2 Pelvic and perineal pain; R05 Cough; J34.89 Other specified disorders of nose and nasal sinuses; O99.331 Smoking (tobacco) complicating pregnancy, first trimester; F17.200 Nicotine dependence, unspecified, uncomplicated; Z88.0 Allergy status to penicillin; Z3A.01 Less than 8 weeks gestation of pregnancy
CPT/HCPCS: 36415; 93005; 80053; 83690; 85025; 81001; 81025; 84702; 76801; 99285; 96374; 96375; 96361 ×3; J2270; J2405

== ENCOUNTER 2020-03-28 14:39 | Emergency (ER) | payer OTHER ==
[2020-03-28] MEDS ORDERED: ONDANSETRON 4 MG/2 ML VIAL IVP STA (15:11)
[2020-03-28] MEDS ORDERED: SODIUM CHLORIDE 0.9% 1,000 ML IV STA (15:11)
[2020-03-28] MEDS ORDERED: FAMOTIDINE 20 MG/2 ML VIAL IV STA (15:12)
--- NOTE | 2020-03-28 15:37 | ED ---
Abdominal Pain HPI - General Chief Complaint: Abdominal Pain Stated Complaint: vomiting,abd pain, 8 weeks prg Time Seen by Provider: 03/28/20 14:54 Source: patient, RN notes reviewed Mode of arrival: ambulatory Limitations: no limitations - History of Present Illness Initial Comments: Patient is a 30-year-old female presents to emergency department complaining of abdominal pain. Kamillehe was in the emergency Department 2 days ago, and was sent home after some pain medication fluids and a diabetic medication was given. She noted that since then she has mailed hold any water, or food down and has been vomiting up phlegm and saliva. She noted that she was still taking her nor goes and Tylenol urine after being advised not to after her finding out she was . She denied any irregular vaginal bleeding. She stated that the nor goes and Tylenol or even touching her pain. Upon interview patient calm down when asking questions and didn't appear to be in severe amount of pain or distress. She did note that she can't lay down on her back due to increase in nausea. She did note that since she has a hole any food down her bowel moveme nts haven't been as formed as usual, she was informed that due to the lack of nutrients this could happen. She denied any chest pain shortness of breath headache constipation diarrhea fever fatigue chills lightheadedness dizziness. Patient stated this is her fourth . - Related Data Home Medications Medication Instructions Recorded Confirmed HYDROcodone/APAP 10-325MG [[place] 1 tab PO QID 05/01/17 03/28/20 10-325] Acetaminophen [Tylenol] 650 mg PO Q4H PRN 03/26/20 03/28/20 Previous Rx's Medication Instructions Recorded Ondansetron Odt [Zofran Odt] 4 mg PO Q8HR PRN #10 tab 03/28/20 Allergies Allergy/AdvReac Type Severity Reaction Status Date / Time amoxicillin [Amoxicillin] Allergy Rash/Hives Verified 03/28/20 17:25 Penicillins Allergy Rash/Hives Verified 03/28/20 17:25 Review of Systems ROS Statement: Those systems with pertinent positive or pertinent negative responses have been documented in the HPI. ROS Other: All systems not noted in ROS Statement are negative. Past Medical History Past Medical History: Asthma Additional Past Medical History / Comment(s): chr. back pain History of Any Multi-Drug Resistant Organisms: None Reported Additional Past Surgical History / Comment(s): d&c Past Anesthesia/Blood Transfusion Reactions: No Reported Reaction Past Psychological History: Anxiety Smoking Status: Current every day smoker Past Alcohol Use History: None Reported Past Drug Use History: Marijuana General Exam Limitations: no limitations General appearance: alert, in no apparent distress Head exam: Present: atraumatic, normocephalic, normal inspection Eye exam: Present: normal appearance, PERRL, EOMI. Absent: scleral icterus, conjunctival injection, periorbital swelling ENT exam: Present: normal exam, mucous membranes moist Neck exam: Present: normal inspection. Absent: tenderness, meningismus, lymphadenopathy Respiratory exam: Present: normal lung sounds bilaterally. Absent: respiratory distress, wheezes, rales, rhonchi, stridor Cardiovascular Exam: Present: regular rate, normal rhythm, normal heart sounds. Absent: systolic murmur, diastolic murmur, rubs, gallop, clicks GI/Abdominal exam: Present: soft, normal bowel sounds. Absent: distended, tenderness, guarding, rebound, rigid External exam: Present: normal external exam Speculum exam: Present: normal speculum exam Extremities exam: Present: normal inspection, full ROM, normal capillary refill. Absent: tenderness, pedal edema, joint swelling, calf tenderness Neurological exam: Present: alert, oriented X3, CN II-XII intact Psychiatric exam: Present: normal affect, normal mood Skin exam: Present: warm, dry, intact, normal color. Absent: rash Course Vital Signs 03/28/20 03/28/20 14:41 18:15 Temperature 97.8 F Pulse Rate 92 Respiratory 18 17 Rate Blood Pressure 123/81 O2 Sat by Pulse 100 Oximetry Medical Decision Making - Medical Decision Making 20-year-old female complaining of abdominal pain, while being . 1 L of normal saline, antibiotic, Pepcid, and basic labs were ordered. Case was discussed with Dr. Ware, it was decided to forego x-rays computed tomography scan to avoid radiating the fetus. Patient was informed that no narcotics would be given in the emergency department due to detrimental effects to the fetus. Labs unremarkable. - Lab Data Result diagrams: 03/28/20 15:49 03/28/20 15:49 Lab Results 03/28/20 03/28/20 03/28/20 Range/Units 15:49 15:49 16:23 WBC 9.8 (3.8-10.6) k/uL RBC 4.43 (3.80-5.40) m/uL Hgb 13.2 (11.4-16.0) gm/dL Hct 38.6 (34.0-46.0) % MCV 87.2 (80.0-100.0) fL MCH 29.7 (25.0-35.0) pg MCHC 34.1 (31.0-37.0) g/dL RDW 12.7 (11.5-15.5) % Plt Count 223 (150-450) k/uL MPV 8.0 Neutrophils % 74 % Lymphocytes % 20 % Monocytes % 4 % Eosinophils % 1 % Basophils % 0 % Neutrophils # 7.2 (1.3-7.7) k/uL Lymphocytes # 2.0 (1.0-4.8) k/uL Monocytes # 0.4 (0-1.0) k/uL Eosinophils # 0.1 (0-0.7) k/uL Basophils # 0.0 (0-0.2) k/uL Sodium 135 L (137-145) mmol/L Potassium 4.2 (3.5-5.1) mmol/L Chloride 104 (98-107) mmol/L Carbon Dioxide 22 (22-30) mmol/L Anion Gap 9 mmol/L BUN 10 (7-17) mg/dL Creatinine 0.59 (0.52-1.04) mg/dL Est GFR (CKD-EPI)AfAm >90 (>60 ml/min/1.73 sqM) Est GFR (CKD-EPI)NonAf >90 (>60 ml/min/1.73 sqM) Glucose 101 H (74-99) mg/dL Calcium 9.4 (8.4-10.2) mg/dL Total Bilirubin 0.3 (0.2-1.3) mg/dL AST 24 (14-36) U/L ALT 28 (4-34) U/L Alkaline Phosphatase 48 (38-126) U/L Total Protein 6.9 (6.3-8.2) g/dL Albumin 4.1 (3.5-5.0) g/dL Amylase 37 (30-110) U/L Lipase 28 (23-300) U/L Trichomonas Ag (Rapid) Negative (Negative) - Radiology Data Radiology results: report reviewed, image reviewed The ultrasound gestational age is 8 weeks 4 days to MORAIMA is 11/03/2020 getting process seen. Viable IUP that correlates with prior exam. Disposition Clinical Impression: Abdominal pain, Nausea and vomiting Disposition: HOME SELF-CARE Condition: Stable Instructions (If sedation given, give patient instructions): Abdominal Pain (ED) Additional Instructions: Please return to the Emergency Department if symptoms worsen or any other concerns. Follow-up with [facility] in 3-5 days. Follow-up primary care 1-2 days. Avoid taking any narcotics, and to be harmful to the fetus. Drink plenty of fluids. Take medications as prescribed. Prescriptions: Ondansetron Odt [Zofran Odt] 4 mg PO Q8HR PRN #10 tab PRN Reason: Nausea Is patient prescribed a controlled substance at d/c from ED?: No Referrals: None,Stated [Primary Care Provider] - 1-2 days Time of Disposition: 18:48
[2020-03-28 16:30] LABS: Basophils % (A) 0 %; Eosinophils # (A) 0.1 k/uL (0-0.7); Eosinophils % (A) 1 %; HCT 38.6 % (34.0-46.0); HGB 13.2 gm/dL (11.4-16.0); Lymphocytes % (A) 20 %; MCH 29.7 pg (25.0-35.0); MCHC 34.1 g/dL (31.0-37.0); MCV 87.2 fL (80.0-100.0); Monocytes # (A) 0.4 k/uL (0-1.0); Monocytes % (A) 4 %; Neutrophils # (A) 7.2 k/uL (1.3-7.7); Neutrophils % (A) 74 %; Platelet Count 223 k/uL (150-450); RBC 4.43 m/uL (3.80-5.40); RDW 12.7 % (11.5-15.5); WBC 9.8 k/uL (3.8-10.6)
[2020-03-28 16:49] LABS: ALT 28 U/L (4-34); AST 24 U/L (14-36); African American GFR (CKD) >90 (>60 ml/min/1.73 sqM); Albumin 4.1 g/dL (3.5-5.0); Alkaline Phosphatase 48 U/L (38-126); Amylase 37 U/L (30-110); Anion Gap 9 mmol/L; Blood Urea Nitrogen 10 mg/dL (7-17); Calcium 9.4 mg/dL (8.4-10.2); Carbon Dioxide 22 mmol/L (22-30); Chloride 104 mmol/L (98-107); Glucose 101 mg/dL (74-99); Lipase 28 U/L (23-300); Non-African American GFR(CKD) >90 (>60 ml/min/1.73 sqM); Potassium 4.2 mmol/L (3.5-5.1); Sodium 135 mmol/L (137-145); Total Bilirubin 0.3 mg/dL (0.2-1.3); Total Protein 6.9 g/dL (6.3-8.2)
[2020-03-28] MEDS ORDERED: DICYCLOMINE 10 MG/ML 2 ML AMP IM STA (17:22)
[2020-03-28 18:16] VITALS: RESP 17
--- NOTE | 2020-03-28 18:28 | US ---
EXAMINATION TYPE: Transabdominal DATE OF EXAM: 03/28/2020 6:04 PM COMPARISON: US CLINICAL HISTORY: Abdominal pain. EXAM PERFORMED: Transabdominal (TA) EXAM MEASUREMENTS: GESTATIONAL AGE / DATING Physician Established: Not yet established Dates by LMP: does not correlate from prior US Dates by First Scan: ( 8 weeks/2 days) EDC: 11/05/2020 Dates by Current Scan for: (8 weeks/4 days) EDC: 11/03/2020 MATERNAL ANATOMY Uterus: 12.8 x 6.7 x 8.1 cm Right Ovary: 3.2 x 2.8 x 2.1 cm Left Ovary: 3.5 x 3.3 x 1.7 cm Post CDS / Adnexa: wnl Presence of free fluid: none GESTATION / SURVEY CRL: 1.9 cm (8 weeks/4 days) Yolk Sac (normal less than 6mm): 0.4 cm Heart Rate: 153 bpm Rhythm: Normal IUP: Viable IUP Date of LMP: Does not correlate Beta HcG (if available): not available Viable IUP that correlates with prior exam. IMPRESSION: The ultrasound gestational age is 8 weeks and 4 days. The MORAIMA is 11/03/2020. No complicating process s een.
[2020-03-28 20:03] VITALS: BP 122/74; PULSE 77; TEMP 98.7
[2020-03-29 14:47] LABS: C. trachomatis,PCR Negative (Neg,Equiv); Chlamydia trachomatis Source Vagina; N. gonorrhoeae,PCR Negative (Neg,Equiv); Neisseria Source Vagina
== END 2020-03-28 19:25 | disposition home or self-care (01) ==
LOC: EC 14:39
DX: O21.9 Vomiting of pregnancy, unspecified (principal); R10.9 Unspecified abdominal pain; O26.891 Other specified pregnancy related conditions, first trimester; O99.331 Smoking (tobacco) complicating pregnancy, first trimester; F17.200 Nicotine dependence, unspecified, uncomplicated; Z3A.01 Less than 8 weeks gestation of pregnancy; Z88.0 Allergy status to penicillin
CPT/HCPCS: 36415; 80053; 82150; 83690; 85025; 87808; 87491; 87591; 87070; 76801; 99284; 96374; 96375; 96361; 96372; J0500; J2405

== ENCOUNTER 2020-05-28 16:04 | Emergency (ER) | payer OTHER ==
[2020-05-28 16:17] VITALS: TEMP 97.8
--- NOTE | 2020-05-28 16:17 | ED ---
General Adult HPI <Alexi Graham - Last Filed: 05/28/20 17:03> - General Source: patient, RN notes reviewed, old records reviewed <Gurinder Regan - Last Filed: 05/28/20 19:26> - General Stated complaint: abd pain/blood in stool/17 wks preg - History of Present Illness Initial comments: 30-year-old female, 17 week presents emergency Department with a chief complaint of rectal bleeding that started early this morning. Patient also reports associated lower abdominal cramping but denies any urinary or vaginal symptoms. (Alexi Graham) This is a 30-year-old female who comes in 17 weeks complaining that she's having rectal bleeding. 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 Patient states the cramping of the lower abdomen continues. Patient denies any vaginal discharge or bleeding. Patient denies any dysuria hematuria urinary frequency. Patient states there is no rectal pain but there is bright red blood per rectum. Patient denies any difficulty breathing shortness of breath or chest pain. Patient denies any recent fever chills or cough. While patient was getting blo od drawn in triage she had a vasovagal episode passed out patient woke up and was still feeling a little lightheaded. (Gurinder Regan) - Related Data Home Medications Medication Instructions Recorded Confirmed HYDROcodone/APAP 10-325MG [[place] 1 tab PO QID 05/01/17 03/28/20 10-325] Acetaminophen [Tylenol] 650 mg PO Q4H PRN 03/26/20 03/28/20 Previous Rx's Medication Instructions Recorded Ondansetron Odt [Zofran Odt] 4 mg PO Q8HR PRN #10 tab 03/28/20 Allergies Allergy/AdvReac Type Severity Reaction Status Date / Time amoxicillin [Amoxicillin] Allergy Rash/Hives Verified 03/28/20 17:25 aspirin Allergy Rash/Hives Verified 05/28/20 16:18 Penicillins Allergy Rash/Hives Verified 03/28/20 17:25 Review of Systems ROS Other: All systems not noted in ROS Statement are negative. <Alexi Graham - Last Filed: 05/28/20 17:03> ROS Other: All systems not noted in ROS Statement are negative. <Gurinder Regan - Last Filed: 05/28/20 19:26> ROS Statement: Those systems with pertinent positive or pertinent negative responses have been documented in the HPI. Past Medical History Past Medical History: Asthma Additional Past Medical History / Comment(s): chr. back pain History of Any Multi-Drug Resistant Organisms: None Reported Additional Past Surgical History / Comment(s): d&c Past Anesthesia/Blood Transfusion Reactions: No Reported Reaction Past Psychological History: Anxiety Smoking Status: Current every day smoker Past Alcohol Use History: None Reported Past Drug Use History: Marijuana <Alexi Graham - Last Filed: 05/28/20 17:03> General Exam <Gurinder Regan - Last Filed: 05/28/20 19:26> - General Exam Comments Initial Comments: GENERAL: Patient is well-developed and well-nourished. Patient is nontoxic and well- hydrated and is in mild distress. ENT: Neck is soft and supple. No significant lymphadenopathy is noted. Oropharynx is clear. Moist mucous membranes. Neck has full range of motion without eliciting any pain. EYES: The sclera were anicteric and conjunctiva were pink and moist. Extraocular movements were intact and pupils were equal round and reactive to light. Eyelids were unremarkable. PULMONARY: Unlabored respirations. Good breath sounds bilaterally. No audible rales rhonchi or wheezing was noted. CARDIOVASCULAR: There is a regular rate and rhythm without any murmurs gallops or rubs. ABDOMEN: Patient has lower abdominal pain in both lower quadrants. SKIN: Skin is clear with no lesions or rashes and otherwise unremarkable. NEUROLOGIC: Patient is alert and oriented x3. Cranial nerves II through XII are grossly intact. Motor and sensory are also intact. Normal speech, volume and content. Symmetrical smile. MUSCULOSKELETAL: Normal extremities with adequate strength and full range of motion. LYMPHATICS: No significant lymphadenopathy is noted PSYCHIATRIC: Normal psychiatric evaluation. (Gurinder Regan) Course Vital Signs 05/28/20 05/28/20 05/28/20 16:14 16:17 17:32 Temperature 97.8 F 97.8 F Pulse Rate 97 84 Respiratory 18 16 Rate Blood Pressure 108/97 110/76 O2 Sat by Pulse 97 98 Oximetry 05/28/20 18:28 Temperature Pulse Rate 91 Respiratory 16 Rate Blood Pressure 112/64 O2 Sat by Pulse Oximetry Medical Decision Making - Lab Data Result diagrams: 05/28/20 17:31 05/28/20 17:06 <Gurinder Regan - Last Filed: 05/28/20 19:26> - Medical Decision Making EKG shows normal sinus rhythm at 80 bpm DC interval is on a 58 QRSs 82 QT intervals 400 QTC is 461. Patient's EKG shows some T-wave abdomen is in 3 and aVF Patient received fluid and some Zofran emergency department. After that patient was able to get up and without problem. Patient's blood pressure was stable heart rate was stable and patient stated she would follow-up with Dr. Aviles for the pain since she's been having it since the beginning of her . I did do a rectal exam on the patient and there was no obvious sites of bleeding. She did not want a vaginal exam (Gurinder Regan) - Lab Data Lab Results 05/28/20 05/28/20 05/28/20 Range/Units 16:42 17:06 17:27 WBC (3.8-10.6) k/uL RBC (3.80-5.40) m/uL Hgb (11.4-16.0) gm/dL Hct (34.0-46.0) % MCV (80.0-100.0) fL MCH (25.0-35.0) pg MCHC (31.0-37.0) g/dL RDW (11.5-15.5) % Plt Count (150-450) k/uL MPV Neutrophils % % Lymphocytes % % Monocytes % % Eosinophils % % Basophils % % Neutrophils # (1.3-7.7) k/uL Lymphocytes # (1.0-4.8) k/uL Monocytes # (0-1.0) k/uL Eosinophils # (0-0.7) k/uL Basophils # (0-0.2) k/uL PT (9.0-12.0) sec INR (<1.2) APTT (22.0-30.0) sec Sodium 133 L (137-145) mmol/L Potassium 4.0 (3.5-5.1) mmol/L Chloride 103 (98-107) mmol/L Carbon Dioxide 20 L (22-30) mmol/L Anion Gap 10 mmol/L BUN 7 (7-17) mg/dL Creatinine 0.41 L (0.52-1.04) mg/dL Est GFR (CKD-EPI)AfAm >90 (>60 ml/min/1.73 sqM) Est GFR (CKD-EPI)NonAf >90 (>60 ml/min/1.73 sqM) Glucose 77 (74-99) mg/dL POC Glucose (mg/dL) 83 (75-99) mg/dL POC Glu Mail Processing Equipment Mechanic ID Lucille Lzoa Calcium 10.2 (8.4-10.2) mg/dL Total Bilirubin 0.3 (0.2-1.3) mg/dL AST 23 (14-36) U/L ALT 33 (4-34) U/L Alkaline Phosphatase 69 (38-126) U/L Troponin I (0.000-0.034) ng/mL Total Protein 6.5 (6.3-8.2) g/dL Albumin 3.9 (3.5-5.0) g/dL Urine Color Yellow Urine Appearance Turbid H (Clear) Urine pH 7.0 (5.0-8.0) Ur Specific [place] 1.011 (1.001-1.035) Urine Protein Negative (Negative) Urine Glucose (UA) Negative (Negative) Urine Ketones Negative (Negative) Urine Blood Negative (Negative) Urine Nitrite Negative (Negative) Urine Bilirubin Negative (Negative) Urine Urobilinogen <2.0 (<2.0) mg/dL Ur Leukocyte Esterase Negative (Negative) Urine RBC 3 (0-5) /hpf Urine WBC 1 (0-5) /hpf Ur Squamous Epith Cells 3 (0-4) /hpf Amorphous Sediment Moderate H (None) /hpf Urine Bacteria Occasional H (None) /hpf Urine Mucus Rare H (None) /hpf Blood Type Blood Type Recheck Bld Type Recheck Status Antibody Screen Spec Expiration Date 05/28/20 05/28/20 05/28/20 Range/Units 17:31 17:31 17:31 WBC 10.7 H (3.8-10.6) k/uL RBC 4.21 (3.80-5.40) m/uL Hgb 12.9 (11.4-16.0) gm/dL Hct 36.7 (34.0-46.0) % MCV 87.1 (80.0-100.0) fL MCH 30.6 (25.0-35.0) pg MCHC 35.2 (31.0-37.0) g/dL RDW 12.7 (11.5-15.5) % Plt Count 235 (150-450) k/uL MPV 8.1 Neutrophils % 73 % Lymphocytes % 19 % Monocytes % 5 % Eosinophils % 2 % Basophils % 0 % Neutrophils # 7.7 (1.3-7.7) k/uL Lymphocytes # 2.1 (1.0-4.8) k/uL Monocytes # 0.6 (0-1.0) k/uL Eosinophils # 0.2 (0-0.7) k/uL Basophils # 0.0 (0-0.2) k/uL PT 12.2 H (9.0-12.0) sec INR 1.2 H (<1.2) APTT 22.4 (22.0-30.0) sec Sodium (137-145) mmol/L Potassium (3.5-5.1) mmol/L Chloride (98-107) mmol/L Carbon Dioxide (22-30) mmol/L Anion Gap mmol/L BUN (7-17) mg/dL Creatinine (0.52-1.04) mg/dL Est GFR (CKD-EPI)AfAm (>60 ml/min/1.73 sqM) Est GFR (CKD-EPI)NonAf (>60 ml/min/1.73 sqM) Glucose (74-99) mg/dL POC Glucose (mg/dL) (75-99) mg/dL POC Glu Mail Processing Equipment Mechanic ID Calcium (8.4-10.2) mg/dL Total Bilirubin (0.2-1.3) mg/dL AST (14-36) U/L ALT (4-34) U/L Alkaline Phosphatase (38-126) U/L Troponin I <0.012 (0.000-0.034) ng/mL Total Protein (6.3-8.2) g/dL Albumin (3.5-5.0) g/dL Urine Color Urine Appearance (Clear) Urine pH (5.0-8.0) Ur Specific [place] (1.001-1.035) Urine Protein (Negative) Urine Glucose (UA) (Negative) Urine Ketones (Negative) Urine Blood (Negative) Urine Nitrite (Negative) Urine Bilirubin (Negative) Urine Urobilinogen (<2.0) mg/dL Ur Leukocyte Esterase (Negative) Urine RBC (0-5) /hpf Urine WBC (0-5) /hpf Ur Squamous Epith Cells (0-4) /hpf Amorphous Sediment (None) /hpf Urine Bacteria (None) /hpf Urine Mucus (None) /hpf Blood Type Blood Type Recheck Bld Type Recheck Status Antibody Screen Spec Expiration Date 05/28/20 Range/Units 17:31 WBC (3.8-10.6) k/uL RBC (3.80-5.40) m/uL Hgb (11.4-16.0) gm/dL Hct (34.0-46.0) % MCV (80.0-100.0) fL MCH (25.0-35.0) pg MCHC (31.0-37.0) g/dL RDW (11.5-15.5) % Plt Count (150-450) k/uL MPV Neutrophils % % Lymphocytes % % Monocytes % % Eosinophils % % Basophils % % Neutrophils # (1.3-7.7) k/uL Lymphocytes # (1.0-4.8) k/uL Monocytes # (0-1.0) k/uL Eosinophils # (0-0.7) k/uL Basophils # (0-0.2) k/uL PT (9.0-12.0) sec INR (<1.2) APTT (22.0-30.0) sec Sodium (137-145) mmol/L Potassium (3.5-5.1) mmol/L Chloride (98-107) mmol/L Carbon Dioxide (22-30) mmol/L Anion Gap mmol/L BUN (7-17) mg/dL Creatinine (0.52-1.04) mg/dL Est GFR (CKD-EPI)AfAm (>60 ml/min/1.73 sqM) Est GFR (CKD-EPI)NonAf (>60 ml/min/1.73 sqM) Glucose (74-99) mg/dL POC Glucose (mg/dL) (75-99) mg/dL POC Glu Mail Processing Equipment Mechanic ID Calcium (8.4-10.2) mg/dL Total Bilirubin (0.2-1.3) mg/dL AST (14-36) U/L ALT (4-34) U/L Alkaline Phosphatase (38-126) U/L Troponin I (0.000-0.034) ng/mL Total Protein (6.3-8.2) g/dL Albumin (3.5-5.0) g/dL Urine Color Urine Appearance (Clear) Urine pH (5.0-8.0) Ur Specific [place] (1.001-1.035) Urine Protein (Negative) Urine Glucose (UA) (Negative) Urine Ketones (Negative) Urine Blood (Negative) Urine Nitrite (Negative) Urine Bilirubin (Negative) Urine Urobilinogen (<2.0) mg/dL Ur Leukocyte Esterase (Negative) Urine RBC (0-5) /hpf Urine WBC (0-5) /hpf Ur Squamous Epith Cells (0-4) /hpf Amorphous Sediment (None) /hpf Urine Bacteria (None) /hpf Urine Mucus (None) /hpf Blood Type O Positive Blood Type Recheck O Pos Bld Type Recheck Status No Antibody Screen NEGATIVE Spec Expiration Date 05/31/2020 - 2330 Disposition <Alexi Graham - Last Filed: 05/28/20 17:03> Is patient prescribed a controlled substance at d/c from ED?: No Time of Disposition: 19:24 <Gurinder Regan - Last Filed: 05/28/20 19:26> Clinical Impression: Vasovagal episode, Rectal bleeding Disposition: HOME SELF-CARE Condition: Good Instructions (If sedation given, give patient instructions): Rectal Bleeding (ED) Additional Instructions: Patient should return if there is worsening symptoms. Referrals: None,Stated [Primary Care Provider] - 1-2 days
[2020-05-28 17:28] LABS: Glucose,Whole Blood 83 mg/dL (75-99)
[2020-05-28 17:33] VITALS: RESP 16
[2020-05-28 17:34] LABS: Amorphous Sediment,Urine Moderate /hpf; Appearance,Urine Turbid (Clear); Bacteria,Urine Occasional /hpf; Bilirubin,Urine Negative (Negative); Blood,Urine Negative (Negative); Color,Urine Yellow; Glucose,Urine (UA) Negative (Negative); Ketones,Urine Negative (Negative); Leukocyte Esterase,Urine Negative (Negative); Mucus,Urine Rare /hpf; Nitrite,Urine Negative (Negative); Protein,Urine Negative (Negative); RBC,Urine 3 /hpf (0-5); Specific Gravity,Urine 1.011 (1.001-1.035); Squamous Epithelial Cell,Urine 3 /hpf (0-4); Urobilinogen,Urine <2.0 mg/dL (<2.0); WBC,Urine 1 /hpf (0-5)
[2020-05-28 17:38] LABS: Basophils % (A) 0 %; Eosinophils # (A) 0.2 k/uL (0-0.7); Eosinophils % (A) 2 %; HCT 36.7 % (34.0-46.0); HGB 12.9 gm/dL (11.4-16.0); Lymphocytes # (A) 2.1 k/uL (1.0-4.8); Lymphocytes % (A) 19 %; MCH 30.6 pg (25.0-35.0); MCHC 35.2 g/dL (31.0-37.0); MCV 87.1 fL (80.0-100.0); Mean Platelet Volume 8.1; Monocytes # (A) 0.6 k/uL (0-1.0); Monocytes % (A) 5 %; Neutrophils # (A) 7.7 k/uL (1.3-7.7); Neutrophils % (A) 73 %; Platelet Count 235 k/uL (150-450); RBC 4.21 m/uL (3.80-5.40); RDW 12.7 % (11.5-15.5); WBC 10.7 k/uL (3.8-10.6)
[2020-05-28] MEDS ORDERED: SODIUM CHLORIDE 0.9% 1,000 ML IV ONE (17:42)
[2020-05-28] MEDS ORDERED: ONDANSETRON 4 MG/2 ML VIAL IVP STA (17:42)
[2020-05-28 17:48] LABS: ALT 33 U/L (4-34); AST 23 U/L (14-36); African American GFR (CKD) >90 (>60 ml/min/1.73 sqM); Albumin 3.9 g/dL (3.5-5.0); Alkaline Phosphatase 69 U/L (38-126); Anion Gap 10 mmol/L; Blood Urea Nitrogen 7 mg/dL (7-17); Calcium 10.2 mg/dL (8.4-10.2); Carbon Dioxide 20 mmol/L (22-30); Chloride 103 mmol/L (98-107); Glucose 77 mg/dL (74-99); Non-African American GFR(CKD) >90 (>60 ml/min/1.73 sqM); Sodium 133 mmol/L (137-145); Total Bilirubin 0.3 mg/dL (0.2-1.3); Total Protein 6.5 g/dL (6.3-8.2)
[2020-05-28 18:05] LABS: INR 1.2 (<1.2); Partial Thromboplastin Time 22.4 sec (22.0-30.0); Prothrombin Time 12.2 sec (9.0-12.0)
--- NOTE | 2020-05-28 18:54 | US ---
EXAMINATION TYPE: US OB >= 14 wk fetus DATE OF EXAM: 05/28/2020 COMPARISON: 03/28/2020 CLINICAL HISTORY: lower abd cramping pelvic pain TECHNIQUE: Transabdominal (TA) GESTATIONAL AGE / DATING Physician Established: (17 weeks/0 days) EDC: 11/05/20 Dates by LMP: LMP unknown Dates by First Scan: (17 weeks/0 days) EDC: 11/05/20 Dates by Current Scan: (17 weeks/3 days) EDC: 11/02/20 SURVEY IUP: Single PLACENTA: Posterior PREVIA: Low Lying UBALDO: 10.3 cm Normal CERVICAL LENGTH (transabdominal: norm > 3.0cm): 3.6 cm BIOMETRY PRESENTATION: Vertex LIE: Longitudinal BPD: 3.8 cm 17 weeks / 4 days HC: 13.8 cm 17 weeks / 2 days AC: 11.1 cm 17 weeks / 0 days FL: 2.5 cm 17 weeks / 4 days ESTIMATED WEIGHT IN GRAMS: 185 grams ESTIMATED WEIGHT IN LBS/OZ: 0 lbs. 7 oz. WEIGHT PERCENTAGE BASED ON ESTABLISHED DATES: 56% HC/AC: 1.24 Normal FL/AC: 22% Normal HEART RATE: 152 bpm RHYTHM: Normal This examination is not a dedicated anatomy scan. IMPRESSION: 1. Single live intrauterine gestation with heart rate of 152 bpm. Estimated gestational age by curren t scan 17 weeks 3 days. 2. Low-lying placenta.
[2020-05-28 19:48] VITALS: BP 113/61; PULSE 80
== END 2020-05-28 19:45 | disposition home or self-care (01) ==
LOC: EC 16:04
DX: O46.92 Antepartum hemorrhage, unspecified, second trimester (principal); O99.512 Diseases of the respiratory system complicating pregnancy, second trimester; O99.332 Smoking (tobacco) complicating pregnancy, second trimester; R55 Syncope and collapse; Z3A.17 17 weeks gestation of pregnancy; J45.909 Unspecified asthma, uncomplicated; F17.200 Nicotine dependence, unspecified, uncomplicated; F12.90 Cannabis use, unspecified, uncomplicated
CPT/HCPCS: 36415; 93005; 86900; 86901; 80053; 84484; 85025; 85610; 85730; 86850; 81001; 76805; 99284; 96374; 96361; J2405

== ENCOUNTER 2020-08-19 12:46 | Inpatient (IN) | payer OTHER ==
[2020-08-19] MEDS ORDERED: SODIUM CHLORIDE 0.9% 1,000 ML IV ONE (12:59)
--- NOTE | 2020-08-19 13:02 | ED ---
Female Urogenital HPI - General Stated complaint: seizure Time Seen by Provider: 08/19/20 12:58 - History of Present Illness Initial comments: 30-year-old female at 29 weeks this may gestational age, , who presents here department for pelvic cramping and questionable seizure versus syncopal event. The patient states that she was recently seen her point and she was driving home from she did point. She was having some pelvic cramping since that time. She states that it's located in her suprapubic region and seems to come and go however is quite severe when the pain is at its maximum. She denies any leakage of fluid or vaginal bleeding. The patient does have a bilobed placenta however has not been told that his low-lying. Patient came to the emergency department and was noted to have some shaking episode while in the car. She was very diaphoretic and was minimally responsive. There is question as to whether she may be however after evaluation this was determined to be incorrect. - Related Data Home Medications Medication Instructions Recorded Confirmed HYDROcodone/APAP 10-325MG [[place] 1 tab PO QID 05/01/17 03/28/20 10-325] Acetaminophen [Tylenol] 650 mg PO Q4H PRN 03/26/20 03/28/20 Previous Rx's Medication Instructions Recorded Ondansetron Odt [Zofran Odt] 4 mg PO Q8HR PRN #10 tab 03/28/20 Allergies Allergy/AdvReac Type Severity Reaction Status Date / Time amoxicillin [Amoxicillin] Allergy Rash/Hives Verified 08/19/20 13:02 aspirin Allergy Rash/Hives Verified 08/19/20 13:02 Penicillins Allergy Rash/Hives Verified 08/19/20 13:02 Review of Systems ROS Statement: Those systems with pertinent positive or pertinent negative responses have been documented in the HPI. ROS Other: All systems not noted in ROS Statement are negative. Past Medical History Past Medical History: Asthma Additional Past Medical History / Comment(s): chr. back pain History of Any Multi-Drug Resistant Organisms: None Reported Additional Past Surgical History / Comment(s): d&c Past Anesthesia/Blood Transfusion Reactions: No Reported Reaction Past Psychological History: Anxiety Smoking Status: Current every day smoker Past Alcohol Use History: None Reported Past Drug Use History: Marijuana General Exam - General Exam Comments Initial Comments: Constitutional: Awake alert Appears comfortable nondiaphoretic Head: Normocephalic atraumatic Eyes: no conjunctival injection No scleral icterus EOMI Neck: No JVD Supple Heart: Regular rate rhythm normal S1-S2 no murmurs Lungs: Clear to auscultation bilaterally No wheezing No rales Abdomen: Soft nondistended gravid abdomen with tenderness and suprapubic region, soft, cervix did not seem to be dilated, no vaginal bleeding noted on examination Extremities: Non edematous DP pulses intact Radial pulses intact Neuro: A&Ox3 cranial nerves II through XII are grossly intact, 5 out of 56 upper and lower [place], the patient is awake and alert and talking and able to answer questions No focal neurologic deficits Psych: Appropriate mood and affect Course Vital Signs 08/19/20 12:57 Temperature 98.6 F Pulse Rate 104 H Respiratory 16 Rate Blood Pressure 114/70 O2 Sat by Pulse 98 Oximetry - Reevaluation(s) Reevaluation #1: 08/19/20 13:14 Bedside ultrasound was performed and there is concern that there may be a lucency base between the placenta in the uterine wall. I did speak with Dr. Forbes was updated patient's status and states that she will come in to evaluate the patient. The patient is having quite a bit of crampy type pain. Reevaluation #2: 08/19/20 13:20 Pt apparently had another episode where she became unresponsive and started dry heaving. I evaluted the pt and she appeared diaphoretic and eyes were open but appeared minimally responsive. HR [address] Diaz arrived and reviewed US images and appears to be placental abruption and taken emergently to the OR for . 08/19/20 13:22 08/19/20 13:24 Reevaluation #3: 08/19/20 13:24 EKG showing sinus tachycardia with a rate of 112. There is no abnormal ST segment changes. T-wave flattening in V3, aVF. Other intervals appear normal. No ectopy. Medical Decision Making - Medical Decision Making Is a 30-year-old female who presents emergency department for a cramping and question will seizure-like activity. My original evaluation the patient's vital signs were stable and she was awake and alert and able to give me a history of chief complaint of lower abdominal cramping which seemed to be waxing and waning in intensity. The patient's pain seemed to increase over time. I did perform a bimanual examination which did not show any blood or cervical dilation. The outside ultrasound was concerning for placental abruption. I spoke with Dr. Diaz and updated on the case. She came in emergently evaluated the patient and determined that she needed to go emergently to the OR for . The patient was transferred up to labor and delivery for stat in critical condition. - Lab Data Result diagrams: 08/19/20 13:05 Lab Results 08/19/20 Range/Units 13:05 WBC 9.8 (3.8-10.6) k/uL RBC 4.20 (3.80-5.40) m/uL Hgb 12.3 (11.4-16.0) gm/dL Hct 35.9 (34.0-46.0) % MCV 85.5 (80.0-100.0) fL MCH 29.3 (25.0-35.0) pg MCHC 34.2 (31.0-37.0) g/dL RDW 13.5 (11.5-15.5) % Plt Count 240 (150-450) k/uL MPV 8.4 Neutrophils % 68 % Lymphocytes % 23 % Monocytes % 6 % Eosinophils % 2 % Basophils % 0 % Neutrophils # 6.6 (1.3-7.7) k/uL Lymphocytes # 2.3 (1.0-4.8) k/uL Monocytes # 0.6 (0-1.0) k/uL Eosinophils # 0.2 (0-0.7) k/uL Basophils # 0.0 (0-0.2) k/uL Disposition Clinical Impression: Placental abruption Disposition: ADMITTED IP TO THIS HOSP Condition: Critical Referrals: None,Stated [Primary Care Provider] - 1-2 days
[2020-08-19 13:18] LABS: Basophils % (A) 0 %; Eosinophils # (A) 0.2 k/uL (0-0.7); Eosinophils % (A) 2 %; HCT 35.9 % (34.0-46.0); HGB 12.3 gm/dL (11.4-16.0); Lymphocytes # (A) 2.3 k/uL (1.0-4.8); Lymphocytes % (A) 23 %; MCH 29.3 pg (25.0-35.0); MCHC 34.2 g/dL (31.0-37.0); MCV 85.5 fL (80.0-100.0); Mean Platelet Volume 8.4; Monocytes # (A) 0.6 k/uL (0-1.0); Monocytes % (A) 6 %; Neutrophils # (A) 6.6 k/uL (1.3-7.7); Neutrophils % (A) 68 %; Platelet Count 240 k/uL (150-450); RDW 13.5 % (11.5-15.5); WBC 9.8 k/uL (3.8-10.6)
[2020-08-19 13:28] LABS: INR 0.9 (<1.2); Partial Thromboplastin Time 22.9 sec (22.0-30.0); Prothrombin Time 9.8 sec (9.0-12.0)
[2020-08-19] MEDS ORDERED: fentaNYL (PF) 50 MCG/ML 2 ML AMP ONE (13:30)
[2020-08-19] MEDS ORDERED: SUCCINYLCHOLINE CHLORIDE VIAL 200 MG/10 ML VIAL IV ONE (13:30)
[2020-08-19] MEDS ORDERED: PROPOFOL 10 MG/ML 20 ML VIAL IV ONE (13:30)
[2020-08-19] MEDS ORDERED: CLINDAMYCIN 150 MG/ML 4 ML VIAL ONE (13:30)
[2020-08-19] MEDS ORDERED: LIDOCAINE 1% INJ 10MG/ML (20 ML MDV) ONE (13:30)
[2020-08-19] MEDS ORDERED: SUCCINYLCHOLINE CHLORIDE 100 MG/5 ML SYR IV ONE (13:30)
[2020-08-19] MEDS ORDERED: OXYTOCIN 30 UNITS/500 ML NS BAG IV ONE (13:30)
[2020-08-19 13:49] LABS: AST 24 U/L (14-36); African American GFR (CKD) >90 (>60 ml/min/1.73 sqM); Albumin 3.9 g/dL (3.5-5.0); Alkaline Phosphatase 130 U/L (38-126); Anion Gap 14 mmol/L; Blood Urea Nitrogen 5 mg/dL (7-17); Calcium 9.7 mg/dL (8.4-10.2); Carbon Dioxide 14 mmol/L (22-30); Chloride 107 mmol/L (98-107); Glucose 102 mg/dL (74-99); Magnesium 1.7 mg/dL (1.6-2.3); Non-African American GFR(CKD) >90 (>60 ml/min/1.73 sqM); Potassium 3.9 mmol/L (3.5-5.1); Sodium 135 mmol/L (137-145); Total Bilirubin 0.4 mg/dL (0.2-1.3); Total Protein 6.6 g/dL (6.3-8.2)
[2020-08-19 13:56] LABS: ALT 22 U/L (4-34)
--- NOTE | 2020-08-19 14:23 | US ---
EXAMINATION TYPE: US OB limited DATE OF EXAM: 08/19/2020 COMPARISON: NONE CLINICAL HISTORY: 29 weeks, pelvic pain/cramping. Pain patient was found in her car having a sizure a t hospital. Doctor looking for placenta abruption Er physician and Dr. Olvera present with ultrasound. Patient started having another sizure in ER Dr. Olvera seen ultrasound images took patient right to s urgery. EXAM PERFORMED: Transabdominal (TA) GESTATIONAL AGE / DATING Physician Established: (29 weeks/0 days) EDC: 11/03/2020 No growth performed on today?s study per ordering physician SURVEY PLACENTA: Yes appears to be abruption. Ultrasound evidence of abruption? Limited scan was performed. There is hypoechogenicity deep to the placenta. IMPRESSION: Findings consistent with placental abruption
[2020-08-19] MEDS ORDERED: OXYTOCIN 30 UNITS/500 ML NS 30 UNIT in SALINE 1 500ML.BAG IV SCH (14:30)
--- NOTE | 2020-08-19 14:43 | P.HPOB ---
History of Present Illness H&P Date: 08/19/20 Chief Complaint: Severe abdominal pain This is a 30-year-old female 5 para 3013 EDC 11/05/2020 at 29 weeks gestation. Patient spent the day yesterday at [place], was driving home today with her family. In the car she began to have severe abdominal pain that came in waves. This began at approximately 1221 per family. Her stepfather brought her to [facility] emergency room. Patient at the time of admission was having emesis and tonic clonic motions, questionable seizure-like activity. Labs were drawn and IV was started. Stat bedside ultrasound suggested a placental abruption, a mass noted behind the placenta in front of the uterine wall. Patient was immediately transferred up to labor and delivery for stat . History is obtained rest fro actively. Past medical history is significant for questionable seizure disorder, exercise-induced asthma. Past surgical history right groin lymph nodes removed, voluntary termination of 7 years ago, retained products of conception in 2009 following a vaginal delivery with a D&C, balloon catheter placement, 10 day ICU admission and blood transfusions. Social history is significant for tobacco smoking for at least 10 years. She denies alcohol or drug use. Her partner of 10 years Enoch is present in the room. Current medications vitamins daily, Zofran when necessary. ALLERGIES include amoxicillin to which reports a rash. On physical exam patient is 5 foot 1 inch, 80 kg, blood pressure 114/70, pulse 104, respirations 16, temperature 98.6. Gen. physical examination reveals an obtunded appearing female. The abdomen is exquisitely tender to palpation. Pelvic exam by ER doctor reveals a long thick closed posterior cervix. No vaginal bleeding. heart rate 160 in the emergency room. Lungs are clear in all [place]. Extremities reveal no edema. Impression: 29 week intrauterine , severe abdominal pain, suspect placental abruption. Plan stat section. Emergency room transfer immediately to labor and delivery suite. Anesthesia and accounting technician present and aware. Review of Systems Constitutional: Reports as per HPI Past Medical History Past Medical History: Asthma Additional Past Medical History / Comment(s): chr. back pain History of Any Multi-Drug Resistant Organisms: None Reported Additional Past Surgical History / Comment(s): d&c Past Anesthesia/Blood Transfusion Reactions: No Reported Reaction Past Psychological History: Anxiety Smoking Status: Current every day smoker Past Alcohol Use History: None Reported Past Drug Use History: Marijuana Medications and Allergies Home Medications Medication Instructions Recorded Confirmed Type HYDROcodone/APAP 10-325MG [[place] 1 tab PO QID 05/01/17 03/28/20 History 10-325] Acetaminophen [Tylenol] 650 mg PO Q4H PRN 03/26/20 03/28/20 History Ondansetron Odt [Zofran Odt] 4 mg PO Q8HR PRN #10 tab 03/28/20 Rx Allergies Allergy/AdvReac Type Severity Reaction Status Date / Time amoxicillin [Amoxicillin] Allergy Rash/Hives Verified 08/19/20 13:02 aspirin Allergy Rash/Hives Verified 08/19/20 13:02 Penicillins Allergy Rash/Hives Verified 08/19/20 13:02 Exam Vital Signs Temp Pulse Resp BP Pulse Ox 08/19/20 12:57 98.6 F 104 H 16 114/70 98 Intake and Output 08/18/20 08/19/20 08/19/20 22:59 06:59 14:59 Other: Weight 80.739 kg See dictation under HPI please Results Result Diagrams: 08/19/20 13:05 08/19/20 13:05 Abnormal Lab Results - Last 24 Hours (Table) 08/19/20 Range/Units 13:05 Sodium 135 L (137-145) mmol/L Carbon Dioxide 14 L (22-30) mmol/L BUN 5 L (7-17) mg/dL Creatinine 0.38 L (0.52-1.04) mg/dL Glucose 102 H (74-99) mg/dL Alkaline Phosphatase 130 H (38-126) U/L Assessment and Plan Assessment: 29 week intrauterine , placental abruption Plan: Stat section. [employer] anesthesia team present and aware. Time with Patient: Less than 30
[2020-08-19] MEDS ORDERED: HYDROmorphone PCA 10 MG/50 ML BAG IV PRN (14:49)
[2020-08-19] MEDS ORDERED: NALOXONE 0.4 MG/ML 1 ML VIAL IV PRN ×2 (14:49→14:50)
--- NOTE | 2020-08-19 14:49 | P.OP ---
Date of Procedure: 08/19/20 Preoperative Diagnosis: 29 week intrauterine , placental abruption. Postoperative Diagnosis: Same, liveborn female , nuchal cord 1, normal-appearing tubes and ovaries and uterine fundus. Procedure(s) Performed: Stat low transverse section Anesthesia: MANDIE Surgeon: Sariah Olvera Glass Science Engineer #1: Tristan Mayes Estimated Blood Loss (ml): 150 IV fluids (ml): 100 Urine output (ml): 150 Pathology: other (The center) Condition: stable Disposition: PACU Operative Findings: Liveborn female vertex infant, 4 lbs. 7 oz., 2010 g, nuchal cord 1. Description of Procedure: Patient is transferred directly to the labor and delivery operating room from the emergency room. She's placed in the dorsal supine position. Sloan catheter is placed. The abdomen is prepped and draped in usual sterile fashion. Gen. anesthetic is given. Clindamycin is given. The appropriate timeout is performed. A low transverse skin incision is made in this is carried down through the subcutaneous tissue of approximately 2 cm depth. Fascia is opened bilaterally with curved Srinivasan scissors. Peritoneum is next identified and incised. The latter flap is placed over the dome of the bladder to protect from bladder and/or ureteral injury. A low transverse uterine incision is made and extended with blunt dissection. Upon entering the abdominal wall the placenta is directly anterior. Delivering through the placenta of vertex presentation is brought into the incision. There is a nuchal cord 1 that is reduced. The patient is officially delivered a liveborn female infant at 1334 hours. Fluid is noted to be clear. Umbilical cord is doubly clamped and ligated, she is handed to waiting placement interviewer for evaluation where scores of 6 and 9 at one and 5 minutes respectively are given. The placentas delivered manually, sent to pathology for evaluation. The uterus is then externalized and massaged. Oxytocin is given. The uterus is swept clean with a sterile sponge to avoid any retained products of conception. The uterus is closed in a two-step fashion, first layer running locking with 0 Vicryl, second layer imbricated with 0 Vicryl. Hemostasis is excellent. The abdomen is suctioned with suction on guard posterior to the uterus. Bilateral tubes and ovaries appear normal to inspection. Uterus is placed gently back into the peritoneal cavity. Bilateral gutters are inspected and cleaned. Peritoneum is allowed to close by secondary intention. Fascia is closed in a running stitch of 0 Vicryl with over ligation in the midline. Subcutaneous tissue is reapproximated with 3-0 Vicryl in a running stitch. 4-0 undyed Monocryl is used on the skin in a subcuticular manner for final skin closure. Steri-Strips and Mastisol are applied to the wound. Uterus is massaged for small amount of vaginal bleeding. Patient is brought back to recovery room in very good condition with stable vital signs including a pulse of 107, blood pressure 114/81, 96% O2 saturation. Urine is clear in the Lsoan tube. weighed 4 lbs. 7 oz. or 2010 g. [facility] on route to transfer the baby secondary to gestational age. Patient is resting comfortably in the recovery room.
[2020-08-19] MEDS ORDERED: METOCLOPRAMIDE 5 MG/ML 2 ML VIAL IVP PRN (14:50)
[2020-08-19] MEDS ORDERED: SIMETHICONE 80 MG CHEWABLE PO PRN (14:50)
[2020-08-19] MEDS ORDERED: ZOLPIDEM 5 MG TAB PO PRN (14:50)
[2020-08-19] MEDS ORDERED: MEASLES-MUMPS-RUBELLA VACC/PF 12,500 UNIT/0.5 ML VIAL SQ ONE (14:50)
[2020-08-19] MEDS ORDERED: diphenhydrAMINE 25 MG CAP PO PRN (14:50)
[2020-08-19] MEDS ORDERED: ONDANSETRON 4 MG/2 ML VIAL IVP PRN (14:50)
[2020-08-19] MEDS ORDERED: diphenhydrAMINE 50 MG CAP PO PRN (14:50)
[2020-08-19] MEDS ORDERED: diphenhydrAMINE 50 MG/ML 1 ML VIAL IVP PRN ×2 (14:50)
[2020-08-19] MEDS ORDERED: HYDROmorphone 1 MG/ML 1 ML SYRINGE IVP STA (15:02)
[2020-08-19 17:05] LABS: Appearance,Urine Cloudy (Clear); Bacteria,Urine Rare /hpf; Bilirubin,Urine Negative (Negative); Blood,Urine Moderate (Negative); Color,Urine Yellow; Glucose,Urine (UA) Negative (Negative); Hyaline Casts,Urine 1 /lpf (0-2); Ketones,Urine 1+ (Negative); Leukocyte Esterase,Urine Negative (Negative); Mucus,Urine Rare /hpf; Nitrite,Urine Negative (Negative); PH, Urine 6.5 (5.0-8.0); Protein,Urine 2+ (Negative); RBC,Urine 2 /hpf (0-5); Specific Gravity,Urine 1.017 (1.001-1.035); Squamous Epithelial Cell,Urine 1 /hpf (0-4); Urobilinogen,Urine <2.0 mg/dL (<2.0); WBC,Urine 3 /hpf (0-5)
[2020-08-19 18:13] LABS: Amphetamine Screen,Urine Not Detected (NotDetected); Barbiturate Screen,Urine Not Detected (NotDetected); Benzodiazepines Screen,Urine Not Detected (NotDetected); Cocaine Screen,Urine Not Detected (NotDetected); Methadone Screen, Urine Not Detected (NotDetected); Opiate Screen,Urine Not Detected (NotDetected); Oxycodone Screen, Urine Not Detected (NotDetected); Phencyclidine Screen,Urine Not Detected (NotDetected); Tricyclic Antidepressant,Urine Not Detected (NotDetected); Urn Cannabinoid Scrn Not Detected (NotDetected)
[2020-08-19] MEDS ORDERED: LACTATED RINGERS 500 ML IV ONE (20:15)
[2020-08-19] MEDS: LACTATED RINGERS 1,000 ML IV SCH (21:17)
[2020-08-19] MEDS: SENNOSIDES-DOCUSATE SODIUM 1 EACH TAB PO SCH (21:17)
[2020-08-20 06:06] LABS: Basophils % (A) 0 %; Eosinophils # (A) 0.2 k/uL (0-0.7); Eosinophils % (A) 2 %; HCT 29.8 % (34.0-46.0); HGB 10.3 gm/dL (11.4-16.0); Lymphocytes # (A) 1.2 k/uL (1.0-4.8); Lymphocytes % (A) 14 %; MCH 29.7 pg (25.0-35.0); MCHC 34.5 g/dL (31.0-37.0); MCV 86.2 fL (80.0-100.0); Mean Platelet Volume 8.1; Monocytes # (A) 0.5 k/uL (0-1.0); Monocytes % (A) 5 %; Neutrophils # (A) 6.9 k/uL (1.3-7.7); Neutrophils % (A) 78 %; Platelet Count 171 k/uL (150-450); RBC 3.46 m/uL (3.80-5.40); RDW 13.5 % (11.5-15.5); WBC 8.9 k/uL (3.8-10.6)
--- NOTE | 2020-08-20 08:19 | P.PN ---
Subjective Progress Note Date: 08/20/20 Principal diagnosis: Doing well postoperative day #1 Negative flatus. Pain well managed. Patient tired. No other complaints. Objective - Vital Signs Vital signs: Vital Signs Temp 97.3 F L 08/20/20 04:00 Pulse 77 08/20/20 04:00 Resp 16 08/20/20 04:00 BP 103/57 08/20/20 04:00 Pulse Ox 95 08/20/20 04:00 Intake & Output 08/19/20 08/20/20 08/20/20 18:59 06:59 18:59 Intake Total 1300 1000 Output Total 190 2700 Balance 1110 -1700 Weight 80.739 kg Intake: IV 1200 1000 Oral 100 Output: Urine 190 2700 Uretheral (Sloan) 800 Other: Voiding Method Indwelling Catheter Indwelling Catheter - Constitutional General appearance: Present: average body habitus - EENT Eyes: Present: PERRLA ENT: Present: hearing grossly normal - Neck Neck: Present: normal ROM - Respiratory Respiratory: bilateral: CTA - Cardiovascular Rhythm: regular - Gastrointestinal General gastrointestinal: Present: normal bowel sounds - Genitourinary Genitourinary Comment(s): Incision clean and dry, intact, Steri-Strips applied. Positive tympany. - Integumentary Integumentary: Present: normal - Neurologic Neurologic: Present: CNII-XII intact - Musculoskeletal Musculoskeletal: Present: strength equal bilaterally - Psychiatric Psychiatric: Present: A&O x's 3 - Labs CBC & Chem 7: 08/20/20 05:40 08/19/20 13:05 Labs: Abnormal Lab Results - Last 24 Hours (Table) 08/19/20 08/19/20 08/20/20 Range/Units 13:05 13:05 05:40 RBC 3.46 L (3.80-5.40) m/uL Hgb 10.3 L (11.4-16.0) gm/dL Hct 29.8 L (34.0-46.0) % Sodium 135 L (137-145) mmol/L Carbon Dioxide 14 L (22-30) mmol/L BUN 5 L (7-17) mg/dL Creatinine 0.38 L (0.52-1.04) mg/dL Glucose 102 H (74-99) mg/dL Alkaline Phosphatase 130 H (38-126) U/L Urine Appearance Cloudy H (Clear) Urine Protein 2+ H (Negative) Urine Ketones 1+ H (Negative) Urine Blood Moderate H (Negative) Urine Bacteria Rare H (None) /hpf Urine Mucus Rare H (None) /hpf Assessment and Plan Assessment: Doing well postoperative day #1 Plan: Patient is anxious for discharge home. She is encouraged today to ambulate, sh ower, increase activities. We'll switch to oral pain medication. Continue postoperative care, optimistic discharge home tomorrow. Time with Patient: Less than 30
[2020-08-20] MEDS: IBUPROFEN 600 MG TAB PO SCH ×3 (09:35→21:04)
[2020-08-20] MEDS: SENNOSIDES-DOCUSATE SODIUM 1 EACH TAB PO SCH ×2 (14:39→21:04)
[2020-08-20] MEDS: ACETAMINOPHEN TAB 500 MG TAB PO PRN (15:42)
[2020-08-20] MEDS: LACTATED RINGERS 1,000 ML IV SCH (20:13)
[2020-08-21] MEDS: ACETAMINOPHEN TAB 500 MG TAB PO PRN ×2 (00:02→08:19)
[2020-08-21 00:07] VITALS: TEMP 98
[2020-08-21] MEDS: IBUPROFEN 600 MG TAB PO SCH ×2 (03:06→11:23)
--- NOTE | 2020-08-21 08:08 | P.DS ---
Providers Date of admission: 08/19/20 13:49 Expected date of discharge: 08/21/20 Attending physician: Sariah Olvera Primary care physician: Stated None Hospital Course: This is a 30-year-old white female 5 para 3114 EDC 920 08/29/2028 weeks gestation who presented through the emergency room with an acute placental abruption. Blood type is O+, rubella status immune. Rupee strep cultures not done. Please see dictated history and physical for details. Patient was admitted and went immediately to the section room where she underwent a low-transverse primary section. She gave to a liveborn female with scores of 6 and 9 at one and 5 minutes respectively. weighed 4 lbs. 7 oz. or 2010 g. Uterus appeared normal to inspection, bilateral tubes and ovaries normal. Estimated blood loss at surgery 150 mL's. Please see dictated operative note for details. Postoperatively the patient has done well. This when she is voiding, ambulating, passing flatus without difficulty. Vital signs are stable and she is afebrile. Incision is clean and dry, well approximated, Steri-Strips applied. Extremities are negative for edema. Chest is clear. Fundus is firm and in the midline, symmetric and 16 week size. There is minimal lochia rubra. Pain is well tolerated with ibuprofen products. She is using a breast pump, and I have given her prescription for same which is been filled at the pharmacy. She will use [id number] Advil or Aleve, or Motrin as needed for pain. I've asked her to call with any fevers shakes or chills, foul smelling or copious lochia, with the passage of large blood clots, with any pain not alleviated by ibuprofen, or indeed with any concerns. She will follow-up with me in the office in 2 weeks. Assessment: Well second post operative day Patient Condition at Discharge: Good Plan - Discharge Summary Discharge Rx Participant: No New Discharge Prescriptions: No Action HYDROcodone/APAP 10-325MG [[place] 10-325] 1 tab PO QID Acetaminophen [Tylenol] 650 mg PO Q4H PRN PRN Reason: Pain Or Fever > 100.5 Ondansetron Odt [Zofran Odt] 4 mg PO Q8HR PRN #10 tab PRN Reason: Nausea Discharge Medication List HYDROcodone/APAP 10-325MG [[place] 10-325] 1 tab PO QID 05/01/17 [History] Acetaminophen [Tylenol] 650 mg PO Q4H PRN 03/26/20 [History] Ondansetron Odt [Zofran Odt] 4 mg PO Q8HR PRN #10 tab 03/28/20 [Rx] Follow up Appointment(s)/Referral(s): None,Stated [Primary Care Provider] - 2 Weeks Sariah Olvera MD [STAFF PHYSICIAN] - 2 Weeks Discharge Disposition: HOME SELF-CARE
[2020-08-21] MEDS: SENNOSIDES-DOCUSATE SODIUM 1 EACH TAB PO SCH (08:19)
[2020-08-21 08:31] VITALS: BP 110/76; PULSE 77; RESP 18
== END 2020-08-21 11:40 | disposition home or self-care (01) | DRG 786 ==
LOC: EC 12:46 → 4FBP 13:49
PROVIDERS: ADMIT Obstetrics & Gynecology; ATTEND Obstetrics & Gynecology
PROC: 10D00Z1 Extraction of Products of Conception, Low, Open Approach (ICD-10-PCS; principal; 2020-08-19 13:30)
DX: O43.193 Other malformation of placenta, third trimester (principal); O45.93 Premature separation of placenta, unspecified, third trimester; O69.81X0 Labor and delivery complicated by cord around neck, without compression, not applicable or unspecified; O99.334 Smoking (tobacco) complicating childbirth; F17.200 Nicotine dependence, unspecified, uncomplicated; F41.9 Anxiety disorder, unspecified; J45.909 Unspecified asthma, uncomplicated; R56.9 Unspecified convulsions; O99.344 Other mental disorders complicating childbirth; O99.52 Diseases of the respiratory system complicating childbirth; Z37.0 Single live birth; Z3A.29 29 weeks gestation of pregnancy
CPT/HCPCS: 36415; 76815; 80053; 80306; 81001; 83735; 85025; 85610; 85730; 86850; 86900; 86901; 88307; 93005; 96360; 99291

== ENCOUNTER → 2020-10-23 | Outpatient (CLI) | payer OTHER ==
[2020-10-23 13:15] LABS: Basophils % (A) 0 %; Eosinophils # (A) 0.2 k/uL (0-0.7); Eosinophils % (A) 3 %; HCT 41.2 % (34.0-46.0); Lymphocytes # (A) 2.9 k/uL (1.0-4.8); Lymphocytes % (A) 37 %; MCH 28.7 pg (25.0-35.0); MCHC 32.8 g/dL (31.0-37.0); MCV 87.3 fL (80.0-100.0); Mean Platelet Volume 8.6; Monocytes # (A) 0.3 k/uL (0-1.0); Monocytes % (A) 4 %; Neutrophils # (A) 4.3 k/uL (1.3-7.7); Neutrophils % (A) 55 %; Platelet Count 252 k/uL (150-450); RBC 4.72 m/uL (3.80-5.40); RDW 13.9 % (11.5-15.5); WBC 7.8 k/uL (3.8-10.6)
[2020-10-23 13:18] LABS: HGB 13.5 gm/dL (11.4-16.0)
== END | disposition home or self-care (01) ==
LOC: LABPAT 11:36
PROVIDERS: ATTEND Obstetrics & Gynecology
DX: Z01.812 Encounter for preprocedural laboratory examination (principal)
CPT/HCPCS: 36415; 85025

== ENCOUNTER 2020-11-19 08:57 | Day surgery (SDC) | payer OTHER ==
--- NOTE | 2020-11-15 08:54 | HP ---
HISTORY AND PHYSICAL REASON FOR ADMISSION: Surgery scheduled for Thursday, November 19, 2020 HISTORY OF PRESENT ILLNESS: This is a 30-year-old female, 5, para 2-1-1-3 who presents today requesting removal of her Nexplanon in her left arm, and laparoscopic bilateral tubal ligation for permanent sterilization. She understands the risks, benefits, and alternatives of all contraceptive options. She desires no further childbearing, but understands that there is a very slight chance of after bilateral tubal ligation. PAST MEDICAL HISTORY: Significant for stress-induced asthma, back pain, carpal tunnel syndrome, degenerative disk disease at L4 and L5, fibromyalgia, chlamydia, depression, osteoarthritis and seizure history. PAST SURGICAL HISTORY: Tonsillectomy and adenoidectomy as a child, section, August 2020, D and C 2010 for hemorrhage, voluntary termination 2012, benign lymph nodes removed of the right groin, and bilateral eustachian tubes in the ears many years ago. ALLERGIES: INCLUDE AMOXICILLIN AND PENICILLINS, REACTION IS NOT NOTED. FAMILY HISTORY: Significant for hypertension, breast and ovarian cancer, diabetes, lung cancer, seizure disorder, SIDS and Covid. REPRODUCTIVE HISTORY: The patient has had vaginal deliveries as well as section in 2020. 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 REVIEW OF SYSTEMS: Is otherwise negative. EXAM: Patient is 5 foot 4 inches, 130 pounds, blood pressure 112/62. HEENT exam reveals no thyromegaly, good dentition, no cervical lymphadenopathy. BREASTS are bilaterally symmetric without lesions or skin changes or adenopathy. CHEST: Clear in all mckee anteriorly and posteriorly. CARDIAC exam reveals regular rate and rhythm with no murmur, click, or rub. ABDOMEN: Soft, nontender, with active bowel sounds. No organosplenomegaly. No CVA tenderness. EXTREMITIES reveal no edema, good range of motion throughout and equal peripheral pulses. The CERVIX is multiparous, uterus is small, anteverted, anteflexed, adnexa negative bilaterally. Good sphincter tone. Normal-appearing external genitalia without rash or lesion. IMPRESSION: Patient desiring permanent tubal sterilization. Nexplanon raquel in the left arm. PLAN: We will remove the Nexplanon in the left arm, and proceed with laparoscopic tubal ligation utilizing Filshie clips. The risks, benefits, and alternatives have all been discussed, including aspiration, nerve damage, or even . Perforation to bladder, bowels, ureters, blood vessels all reviewed, risk of bleeding and infection also discussed. All questions answered. MMODL / IJN: [id number] /
[2020-11-16 09:12] VITALS: BMI 31.7
[~2020-11-19 08:57] MED LIST: DEXAMETHASONE SOD PHOSPHATE 4 MG/ML 1 ML VIAL IV ONE; HYDROmorphone 0.5 MG/0.5 ML SYRINGE IVP PRN; LACTATED RINGERS 1,000 ML IV SCH; ONDANSETRON 4 MG/2 ML VIAL IVP ONE; Pre Op ABX Message 1 EACH MISC MISCELLANE ONE
[2020-11-19] MEDS ORDERED: SCOPOLAMINE 1.5MG/72HR PATCH TRANSDERM ONE (09:34)
[2020-11-19] MEDS ORDERED: ROCURONIUM 10 MG/ML (5 ML VIAL) IV ONE (10:32)
[2020-11-19] MEDS ORDERED: NEOSTIGMINE 1 MG/ML 10 ML VIAL ONE (10:32)
[2020-11-19] MEDS ORDERED: KETOROLAC 15 MG/ML 1 ML VIAL ONE (10:32)
[2020-11-19] MEDS ORDERED: MIDAZOLAM 2 MG/2 ML VIAL ONE (10:32)
[2020-11-19] MEDS ORDERED: fentaNYL (PF) 50 MCG/ML 2 ML AMP ONE (10:32)
[2020-11-19] MEDS ORDERED: GLYCOPYRROLATE 0.2 MG/ML 2 ML VIAL ONE (10:32)
[2020-11-19] MEDS ORDERED: PROPOFOL 10 MG/ML 20 ML VIAL IV ONE (10:32)
[2020-11-19] MEDS ORDERED: SUCCINYLCHOLINE CHLORIDE 100 MG/5 ML SYR IV ONE (10:32)
[2020-11-19] MEDS ORDERED: HYDROmorphone (PF) 1 MG/ML ONE (10:32)
[2020-11-19] MEDS ORDERED: LIDOCAINE 1% INJ 10MG/ML (20 ML MDV) ONE (10:32)
[2020-11-19] MEDS ORDERED: BUPIVACAINE (PF) 0.25% 30 ML VIAL SQ ONE ×2 (10:55→11:12)
--- NOTE | 2020-11-19 11:34 | P.OP ---
Date of Procedure: 11/19/20 Preoperative Diagnosis: Undesired fertility, nexplanon raquel in the left arm Postoperative Diagnosis: Same, normal-appearing ovaries bilaterally Procedure(s) Performed: Laparoscopic tubal ligation with Filshie clips, removal of nexplanon raquel left arm Anesthesia: GREYA Surgeon: Sariah Olvera Estimated Blood Loss (ml): 25 IV fluids (ml): 400 Urine output (ml): 35 Pathology: none sent Condition: stable Disposition: PACU Description of Procedure: Patient is brought to the operating suite where a general anesthetic is administered without difficulty. She's placed in the dorsal lithotomy position. Cervix, vagina, abdomen are all prepped and draped in usual sterile fashion. Urine hCG is negative. The appropriate timeout is performed to assure proper patient and procedural identification. Speculum is placed into the vagina, anterior lip of the cervix is grasped with an Allis clamp and the acorn cannula is placed onto the cervix and attached to the Allis. Speculum is removed. Bladder is drained for approximately 35 mL of clear yellow urine. At this time attention is drawn to the abdominal wall. A small infraumbilical incision is made varies needle is placed in placement is checked with hanging drop technique. Abdomen is insufflated under low filling pressures of approximate 6-8 mmHg for a total of 3.2 L of CO2 gas, there is needle was then removed. Trochars placed in the laparoscope confirms atraumatic entry. A second incision is made suprapubically under direct visualization a trocar is placed, again atraumatic insertion. Uterus is placed in the anteverted lateral traction and the left fallopian tube is visualized in its entirety to the fimbriated end. A Filshie clip is placed in the isthmic portion of the tube with care to traverse the entire diameter of the tube into the mesal salpinx. Ovary appears normal. Same procedure is carried out contralaterally onto the right fallopian tube, again placed in the isthmic portion through and through into the mesal salpinx. Right ovary also appears normal. There are some filmy adhesions noted with the omentum, status post section. The rest of the pelvis appears negative, no evidence of pelvic endometriosis, uterine fibroids, or other anomalies. CO2 gas was allowed to diffuse. Instruments are removed under direct visualization and the fascial defects are clean and dry. 4-0 undyed Monocryl is used in a subcuticular manner on the small incisions, Steri-Strips and Mastisol are applied. At this time attention is drawn to the left arm. It is prepped. The right is easily palpated. A small incision is made with a scalpel and the right is brought into the incision with a hemostat. It is removed in its entirety, visualized by myself and staff. Steri-Strips placed on this small incision. Now the instruments are removed from the vagina. Cervix is clean and dry. All sponge needle and enhancement counts are correct. Patient is brought back to recovery room in very good condition with stable vital signs including pulse of 79, 97% O2 saturation, blood pressure 153/84. Toradol is given prior to leaving the operative suite. Patient will follow-up with me in the office in 2 weeks.
[2020-11-19 11:39] VITALS: TEMP 97.7
[2020-11-19] MEDS ORDERED: diphenhydrAMINE 50 MG/ML 1 ML VIAL IVP ONE (11:40)
[2020-11-19] MEDS ORDERED: diphenhydrAMINE 50 MG/ML 1 ML VIAL ONE (11:42)
[2020-11-19 11:49] VITALS: RESP 16
[2020-11-19] MEDS ORDERED: LACTATED RINGERS 1,000 ML IV ONE (12:48)
[2020-11-19 13:09] VITALS: BP 122/79; PULSE 59
== END 2020-11-19 13:28 | disposition home or self-care (01) ==
LOC: OR 08:57
PROVIDERS: ATTEND Obstetrics & Gynecology
DX: Z30.2 Encounter for sterilization (principal); I25.10 Atherosclerotic heart disease of native coronary artery without angina pectoris; F17.200 Nicotine dependence, unspecified, uncomplicated; M79.89 Other specified soft tissue disorders; Z86.73 Personal history of transient ischemic attack (TIA), and cerebral infarction without residual deficits; R56.9 Unspecified convulsions; Z79.82 Long term (current) use of aspirin; Z88.0 Allergy status to penicillin; M41.9 Scoliosis, unspecified
CPT/HCPCS: 58671; 11982; 81025; J2250; J1200; J1100; J2710; J2405; J2001; J3010; J1170; J1885; J0330; J2704

== ENCOUNTER 2020-12-31 14:10 | Emergency (ER) | payer OTHER ==
[2020-12-31 14:18] VITALS: BP 105/71
[2020-12-31] MEDS ORDERED: IBUPROFEN 600 MG TAB PO STA (15:23)
[2020-12-31] MEDS ORDERED: ACETAMINOPHEN TAB 500 MG TAB PO STA (15:23)
[2020-12-31] MEDS ORDERED: ONDANSETRON ODT 4 MG TAB PO STA (15:23)
[2020-12-31] MEDS ORDERED: SODIUM CHLORIDE 0.9% 1,000 ML IV ONE (16:00)
--- NOTE | 2020-12-31 16:04 | ED ---
URI HPI - General Chief Complaint: Upper Respiratory Infection Stated Complaint: Chest Pain/Headache/Fever Time Seen by Provider: 12/31/20 15:09 Source: patient, RN notes reviewed Mode of arrival: wheelchair Limitations: no limitations - History of Present Illness Initial Comments: This is a 30-year-old female presents emergency Department with chief complaint of cough congestion nausea vomiting bodyaches fevers chills. Patient states that she's been sick last few days. Patient states getting worse. Patient states she slipped on the murmurs recently just positive for COVID-19. Patient is nonproductive cough. Patient not taking any recent Tylenol Motrin no rashes no other complaints. - Related Data Home Medications Medication Instructions Recorded Confirmed HYDROcodone/APAP 10-325MG [[place] 1 tab PO QID 05/01/17 11/19/20 10-325] Allergies Allergy/AdvReac Type Severity Reaction Status Date / Time amoxicillin [Amoxicillin] Allergy Rash/Hives Verified 12/31/20 14:19 aspirin Allergy Rash/Hives Verified 12/31/20 14:19 Penicillins Allergy Rash/Hives Verified 12/31/20 14:19 Review of Systems ROS Statement: Those systems with pertinent positive or pertinent negative responses have been documented in the HPI. ROS Other: All systems not noted in ROS Statement are negative. Past Medical History Past Medical History: Asthma Additional Past Medical History / Comment(s): chr. back pain History of Any Multi-Drug Resistant Organisms: None Reported Past Surgical History: Section Additional Past Surgical History / Comment(s): d&c. RT GROIN LYMPH NODES REMOVED 2008. EMERGENCY C-SEC 08/19/20 Past Anesthesia/Blood Transfusion Reactions: No Reported Reaction Past Psychological History: Anxiety Smoking Status: Current every day smoker Past Alcohol Use History: None Reported Past Drug Use History: Marijuana - Past Family History Sister(s) Family Medical History: Cancer General Exam Limitations: no limitations General appearance: alert, in no apparent distress Head exam: Present: atraumatic, normocephalic, normal inspection Eye exam: Present: normal appearance, PERRL, EOMI. Absent: scleral icterus, conjunctival injection, periorbital swelling ENT exam: Present: normal exam, mucous membranes moist Neck exam: Present: normal inspection, full ROM. Absent: tenderness, meningismus, lymphadenopathy Respiratory exam: Present: normal lung sounds bilaterally. Absent: respiratory distress, wheezes, rales, rhonchi, stridor Cardiovascular Exam: Present: regular rate, normal rhythm, normal heart sounds. Absent: systolic murmur, diastolic murmur, rubs, gallop, clicks GI/Abdominal exam: Present: soft, normal bowel sounds. Absent: distended, tenderness, guarding, rebound, rigid Course Vital Signs 12/31/20 14:16 Temperature 96.9 F L Pulse Rate 103 H Respiratory 20 Rate Blood Pressure 105/71 O2 Sat by Pulse 100 Oximetry Medical Decision Making - Medical Decision Making Patient is positive for COVID-19. Patient received multiple pulmonary embolism discharged in stable condition return parameters were discussed. - Lab Data Lab Results 12/31/20 Range/Units 15:18 Coronavirus (PCR) Detected A (Not Detectd) Disposition Clinical Impression: COVID-19 Disposition: HOME SELF-CARE Condition: Stable Instructions (If sedation given, give patient instructions): Coronavirus Disease 2019 (COVID-19) Additional Instructions: Please return to the Emergency Department if symptoms worsen or any other concerns. Is patient prescribed a controlled substance at d/c from ED?: No Referrals: None,Stated [Primary Care Provider] - 1-2 days Time of Disposition: 16:04
[2020-12-31] MEDS ORDERED: SODIUM CHLORIDE 0.9% 50 ML IVPB ONE (16:15)
--- NOTE | 2020-12-31 16:23 | XR ---
EXAMINATION TYPE: XR chest 2V DATE OF EXAM: 12/31/2020 COMPARISON: Chest x-ray April 10, 2018 HISTORY: Cough and fever. TECHNIQUE: Frontal and lateral views of the chest are obtained. FINDINGS: There is no suspicious new focal air space opacity, pleural effusion, or pneumothorax seen . The cardiac silhouette size is stable and within normal limits. The osseous structures are intac t. IMPRESSION: No acute pulmonary process.
[2020-12-31] MEDS ORDERED: BAMLANIVIMAB (EUA) 700 MG, ETESEVIMAB (EUA) 1,400 MG in SODIUM CHLORIDE 0.9% 50 ML IVPB ONE (16:30)
[2020-12-31 18:01] VITALS: PULSE 85; RESP 18; TEMP 98.8
== END 2020-12-31 18:01 | disposition home or self-care (01) ==
LOC: EC 14:10
DX: U07.1 COVID-19 (principal); J45.909 Unspecified asthma, uncomplicated; F17.200 Nicotine dependence, unspecified, uncomplicated; Z88.0 Allergy status to penicillin; Z88.6 Allergy status to analgesic agent
CPT/HCPCS: 87635; 71046; 96365; 99285; J3490

== ENCOUNTER 2021-01-03 11:54 | Emergency (ER) | payer OTHER ==
[2021-01-03 13:31] VITALS: TEMP 96.9
[2021-01-03] MEDS ORDERED: Acetaminophen-Codeine 300-30mg TAB PO STA (13:41)
[2021-01-03] MEDS ORDERED: IBUPROFEN 600 MG TAB PO STA (13:41)
--- NOTE | 2021-01-03 13:55 | ED ---
General Adult HPI - General Chief complaint: Shortness of Breath Stated complaint: Shortness of breath; Covid + Time Seen by Provider: 01/03/21 13:27 Source: patient, RN notes reviewed Mode of arrival: ambulatory Limitations: no limitations - History of Present Illness Initial comments: 30-year-old female presents emergency Department with chief complaint of COVID- 19. Patient tested positive few days ago did receive monoclonal antibodies. Patient states that she's been having worsening cough congestion. Patient states she has a pulse ox at home and states that it was in the low 90s. She states that her ribs hurt from coughing, denies any exertional symptoms aren't significantly swelling. Denies any vomiting diarrhea constipation. - Related Data Home Medications Medication Instructions Recorded Confirmed HYDROcodone/APAP 10-325MG [[place] 1 tab PO QID 05/01/17 01/03/21 10-325] Previous Rx's Medication Instructions Recorded Dexamethasone 6 mg PO DAILY #5 tablet 01/03/21 Allergies Allergy/AdvReac Type Severity Reaction Status Date / Time amoxicillin [Amoxicillin] Allergy Rash/Hives Verified 01/03/21 14:39 aspirin Allergy Rash/Hives Verified 01/03/21 14:39 Penicillins Allergy Rash/Hives Verified 01/03/21 14:39 Review of Systems ROS Statement: Those systems with pertinent positive or pertinent negative responses have been documented in the HPI. ROS Other: All systems not noted in ROS Statement are negative. Past Medical History Past Medical History: Asthma Additional Past Medical History / Comment(s): chr. back pain History of Any Multi-Drug Resistant Organisms: None Reported Past Surgical History: Section Additional Past Surgical History / Comment(s): d&c. RT GROIN LYMPH NODES REMOVED 2008. EMERGENCY C-SEC 08/19/20 Past Anesthesia/Blood Transfusion Reactions: No Reported Reaction Past Psychological History: Anxiety Smoking Status: Current every day smoker Past Alcohol Use History: None Reported Past Drug Use History: Marijuana - Past Family History Sister(s) Family Medical History: Cancer General Exam Limitations: no limitations General appearance: alert, in no apparent distress Head exam: Present: atraumatic, normocephalic, normal inspection Eye exam: Present: normal appearance, PERRL, EOMI. Absent: scleral icterus, conjunctival injection, periorbital swelling ENT exam: Present: normal exam, normal oropharynx, mucous membranes moist Neck exam: Present: normal inspection, full ROM. Absent: tenderness, meningismus, lymphadenopathy Respiratory exam: Present: normal lung sounds bilaterally. Absent: respiratory distress, wheezes, rales, rhonchi, stridor Cardiovascular Exam: Present: regular rate, normal rhythm, normal heart sounds. Absent: systolic murmur, diastolic murmur, rubs, gallop, clicks GI/Abdominal exam: Present: soft, normal bowel sounds. Absent: distended, tenderness, guarding, rebound, rigid Course Vital Signs 01/03/21 13:27 Temperature 96.9 F L Pulse Rate 98 Respiratory 19 Rate Blood Pressure 98/69 O2 Sat by Pulse 99 Oximetry Medical Decision Making - Medical Decision Making Patient was probably seen here and diagnosed with COVID-19, monoclonal antibodies were given. Patient states that she had a loss pulse ox at home though pulse ox 99-100% here. Patient x-rays unchanged. She ambulated with no hypoxia will be discharged stable patient. Disposition Clinical Impression: COVID-19 Disposition: HOME SELF-CARE Condition: Stable Instructions (If sedation given, give patient instructions): Coronavirus Disease 2019 (COVID-19) Additional Instructions: Please return to the Emergency Department if symptoms worsen or any other concerns. Prescriptions: Dexamethasone 6 mg PO DAILY #5 tablet Is patient prescribed a controlled substance at d/c from ED?: No Referrals: None,Stated [Primary Care Provider] - 1-2 days Time of Disposition: 14:52
--- NOTE | 2021-01-03 13:56 | XR ---
EXAMINATION TYPE: XR chest 2V DATE OF EXAM: 01/03/2021 COMPARISON: Chest x-ray 3 days ago HISTORY: Cough. TECHNIQUE: Frontal and lateral views of the chest are obtained. FINDINGS: There is no suspicious new focal air space opacity, pleural effusion, or pneumothorax seen . The cardiac silhouette size is stable and within normal limits. The osseous structures are intac t. IMPRESSION: No acute pulmonary infiltrate. No significant change from prior.
[2021-01-03] MEDS ORDERED: DEXAMETHASONE SOD PHOSPHATE 10 MG/ML 1 ML VIAL IM STA (14:51)
[2021-01-03 15:07] VITALS: PULSE 72; RESP 20
[2021-01-03 15:18] VITALS: BP 103/67
== END 2021-01-03 15:19 | disposition home or self-care (01) ==
LOC: EC 11:54
DX: U07.1 COVID-19 (principal); J45.909 Unspecified asthma, uncomplicated; F17.200 Nicotine dependence, unspecified, uncomplicated; Z88.0 Allergy status to penicillin; Z88.6 Allergy status to analgesic agent
CPT/HCPCS: 71046; 99284; 96372; J1100

== ENCOUNTER → 2021-02-16 | Outpatient (CLI) | payer OTHER ==
--- NOTE | 2021-02-16 12:36 | MR ---
EXAMINATION TYPE: MR lumbar spine wo/w con DATE OF EXAM: 02/16/2021 COMPARISON: NONE HISTORY: Low back pain that radiates down both legs, 11 years. TECHNIQUE: Multiplanar, multisequence images of the lumbar spine is performed without and with IV contrast, util izing 7 mL intravenous Gadavist FINDINGS: Some motion artifact noted evaluation slightly suboptimal. Sagittal images of the lumbar sp ine show vertebral body heights and alignment to appear satisfactory. Disc desiccation L4-L5 and L5-S 1 levels. Disc space heights are maintained. Annular tear posterior L5-S1 level. The conus medullari s is normal in position and signal ending mid L1 level. Small hemangioma posterior L2 level sagittal image 9. No abnormal postcontrast enhancement. Axial images show T12-L1, L1-L2, L2-L3, and L3-L4 levels all to appear within normal limits. Axial images at the L4-L5 level shows right paracentral/foraminal disc protrusion mildly facing anter ior thecal sac with increased signal posteriorly or annular tear. There is asymmetric mild right-side d neural foraminal narrowing. Mild facet arthropathy bilaterally. Axial images at L5-S1 level shows mild facet arthropathy bilaterally. There is central disc protrusio n of the spinal canal is preserved. Patent bilateral neural foramina. No suspicious bowel dilatation. Paraspinal muscle bulk is preserved. IMPRESSION: Degenerative changes lower lumbar spine as detailed above. No large disc herniation to ac count for patient's bilateral radiculopathy type symptoms however.
== END | disposition home or self-care (01) ==
LOC: RADMRIMAIN 11:21
PROVIDERS: ATTEND Physical Medicine & Rehabilitation
DX: M51.36 Other intervertebral disc degeneration, lumbar region (principal); M54.16 Radiculopathy, lumbar region
CPT/HCPCS: 72158; A9585

== ENCOUNTER 2022-06-23 10:05 | Emergency (ER) | payer OTHER ==
[2022-06-23 10:24] LABS: Glucose,Whole Blood 102 mg/dL (70-110)
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
[2022-06-23 10:40] LABS: Basophils % (A) 0 %; Eosinophils # (A) 0.2 k/uL (0-0.7); Eosinophils % (A) 2 %; HCT 40.6 % (34.0-46.0); HGB 13.6 gm/dL (11.4-16.0); Lymphocytes # (A) 2.4 k/uL (1.0-4.8); Lymphocytes % (A) 30 %; MCH 29.8 pg (25.0-35.0); MCHC 33.5 g/dL (31.0-37.0); MCV 88.9 fL (80.0-100.0); Mean Platelet Volume 8.4; Monocytes # (A) 0.4 k/uL (0-1.0); Monocytes % (A) 5 %; Neutrophils # (A) 4.8 k/uL (1.3-7.7); Neutrophils % (A) 61 %; Platelet Count 242 k/uL (150-450); RBC 4.57 m/uL (3.80-5.40); RDW 13.1 % (11.5-15.5); WBC 7.9 k/uL (3.8-10.6)
[2022-06-23 10:51] LABS: Partial Thromboplastin Time 24.4 sec (22.0-30.0); Prothrombin Time 10.4 sec (9.0-12.0)
[2022-06-23 10:53] LABS: ALT 13 U/L (4-34); AST 17 U/L (14-36); Acetaminophen <10.0 ug/mL; African American GFR (CKD) >90 (>60 ml/min/1.73 sqM); Albumin 4.2 g/dL (3.5-5.0); Alcohol <10 mg/dL; Alkaline Phosphatase 62 U/L (38-126); Anion Gap 10 mmol/L; Blood Urea Nitrogen 7 mg/dL (7-17); Calcium 9.1 mg/dL (8.4-10.2); Carbon Dioxide 23 mmol/L (22-30); Chloride 108 mmol/L (98-107); Glucose 98 mg/dL (74-99); Magnesium 2.1 mg/dL (1.6-2.3); Non-African American GFR(CKD) >90 (>60 ml/min/1.73 sqM); Potassium 3.8 mmol/L (3.5-5.1); Salicylate <1.0 mg/dL; Sodium 141 mmol/L (137-145); Total Bilirubin 0.5 mg/dL (0.2-1.3); Total Protein 6.9 g/dL (6.3-8.2)
--- NOTE | 2022-06-23 11:16 | CT ---
EXAMINATION TYPE: CT brain wo con DATE OF EXAM: 06/23/2022 COMPARISON: None HISTORY: Found unresponsive, AMS CT DLP: 1086.4 mGycm. Automated Exposure Control for Dose Reduction was Utilized. TECHNIQUE: CT scan of the head is performed without contrast. FINDINGS: There is no acute intracranial hemorrhage, mass effect, or midline shift identified. The ventricles and sulci are within normal limits in size. The globes are intact and the visualized sin uses are clear. IMPRESSION: No acute intracranial hemorrhage, mass effect, or midline shift is seen.
[2022-06-23 11:51] VITALS: RESP 16
[2022-06-23 12:21] VITALS: PULSE 68
[2022-06-23 12:25] LABS: Amphetamine Screen,Urine Not Detected (NotDetected); Barbiturate Screen,Urine Not Detected (NotDetected); Benzodiazepines Screen,Urine Not Detected (NotDetected); Cocaine Screen,Urine Detected (NotDetected); Methadone Screen, Urine Not Detected (NotDetected); Opiate Screen,Urine Not Detected (NotDetected); Oxycodone Screen, Urine Not Detected (NotDetected); Phencyclidine Screen,Urine Not Detected (NotDetected); Tricyclic Antidepressant,Urine Not Detected (NotDetected); Urn Cannabinoid Scrn Detected (NotDetected)
[2022-06-23 12:31] VITALS: BP 106/68
== END 2022-06-23 12:31 | disposition home or self-care (01) ==
LOC: EC 10:05
DX: R41.82 Altered mental status, unspecified (principal); J45.909 Unspecified asthma, uncomplicated; F12.90 Cannabis use, unspecified, uncomplicated; F17.200 Nicotine dependence, unspecified, uncomplicated; Z88.0 Allergy status to penicillin; Z88.6 Allergy status to analgesic agent
CPT/HCPCS: 36415; 93005; 83930; 80053; 83605; 83735; 85025; 85610; 85730; 80306; 80143; 80179; 70450; 99285; G0480; 80320

== ENCOUNTER → 2023-06-18 | Outpatient (CLI) | payer OTHER ==
[2023-06-18 09:08] VITALS: BP 132/76; PULSE 113; RESP 15; TEMP 98.7
--- NOTE | 2023-06-18 14:28 | P.PAINPG ---
PQRS Measure Charge Sheet Comment: HISTORY OF PRESENT ILLNESS: A 33 yr old female as a referral from Dr Chao presents today w severe and chronic LBP since falling off a step stool on 05/11/23 for evaluation. Pt states pain level is provoked at 9 /10 in intensity, constant, localized in the lumbar spine, predominantly axial, achy in character w occasional shooting pain towards the RLE and toes. Pain is provoked by weight bearing. Pain is alleviated by physician guided home exercises/ stretches every other day since 05/11/23, medications (Aleve, Tyl, Ibu), heat & ice, repositioning and rest . Pt states that Dr Franco eliminated PT as she has Fibromyalgia. Oswestry axial pain score at 37. PMH: OA, Asthma, Anxiety PSH: (2020), D &C, R Groin Lymph Node Resection SH: Daily tobacco use, No ETOH abuse, Cannabis use FH: Sis- [place] All: See list Meds: See list REVIEW OF ORGAN SYSTEMS: CONSTITUTIONAL: No fevers or chills. No recent weight loss. NEUROLOGICAL: + numbness and tingling along the distal extremities. No seizure disorders or headaches. MUSCULOSKELETAL: + pain PSYCHIATRIC: Denies current depression or suicidal thoughts. Physical Examinations : Constitutional : Cooperative , not in acute distress . Neurologic : Cranial nerve II to XII intact. No focal neurological deficits. Psychiatric : alert & oriented x 3. Matching mood & appropriate affect. Judgment & insight intact. Musculoskeletal : Cervical Spine Motor strength in the deltoid and biceps: Normal right side. Normal Left side Motor strength biceps and the wrist extensors: Normal right side . Normal left side Motor strength in the triceps muscle: Normal right side. Normal left side Deep tendon reflexes: Normal at the biceps. Normal at Brachioradialis. Normal at triceps Vertebral body tenderness to deep palpation over Cervical facet loading test: positive bilaterally Spurling test: positive bilaterally Neck distraction test: positive bilaterally Hiro sign: positive bilaterally Lumbar spine Motor strength lower extremities ,thigh and legs 5/5 Right side , 5/5 Left side Deep tendon reflexes : Normal Knee Jerk. Normal Ankle Jerk Vertebral body tenderness over Rojo Test positive Taut bands w twitch response over BL T8-L4 Lumbar facet Loading Test: positive Right / positive Left Range of motion of the lumbar spine Flexion 30 degrees, extension 10 degrees Straight Leg Raise test: Left/ Right positive at degrees Skip test: positive right / positive left. Severe tenderness over the Sacroiliac joint on the Right / Left sides Gaenslen test: positive bilaterally Seated flexion test: positive bilaterally. Sacral spine : Severe tenderness over the Sacroiliac joint: right side / left side Range of motion: Flexion of the lumbar spine <60 degrees Range of motion: Extension of the lumbar spine <20 degrees Gaenslen's Test positive Skip test: positive right side / left side Thigh Thrust Test Sacral Thrust Test Imaging: MRI R hip from 05/29/23 reviewed Assessment/ Plan : Lumbar DDD, R hip contusion Disinterested in injections due to her history of needing root canals after "every injection." Advised pt to continue her treatment plan, to follow up cheo Fletcher, her behavioral health case manager, to see her worker's comp physician. Physician guided home exercise packet and directions provided. Pt later changec her mind and was agreeable to TPIs. BL TPIs T8- L4. May need a series of injections for optimal pain relief. Risks, benefits of procedure discussed and pt verbalized understanding. All questions answered. I have spent greater than 30 minutes on patient care today. Dr Baez was available by phone for the evaluation of this patient. The time was used to review the medical records including relevant urine studies and Prescription history (MAPs), review of the available imaging, evaluation and examination of the patient, coordination of care with the medical staff and if applicable refer ring physicians, as well as creation of the medical record PQRS Narrative: Smoking Status Current every day smoker Home Medications: Ambulatory Orders No Known Home Medications 06/23/22 Controlled Substance Measures - Controlled Substance Measures Is patient prescribed a controlled substance at discharge?: No
== END ==
LOC: PNWHC3 08:01
PROVIDERS: ATTEND Specialist
DX: S70.01XA Contusion of right hip, initial encounter (principal); M54.51 Vertebrogenic low back pain; M41.86 Other forms of scoliosis, lumbar region; M51.16 Intervertebral disc disorders with radiculopathy, lumbar region; G89.29 Other chronic pain; F17.200 Nicotine dependence, unspecified, uncomplicated; Z88.0 Allergy status to penicillin; Z88.6 Allergy status to analgesic agent; X58.XXXA Exposure to other specified factors, initial encounter
CPT/HCPCS: 99211